=== PATIENT | male | born 1935 | race Caucasian/White ===

== ENCOUNTER 2018-08-22 18:34 | Inpatient (IN) | payer OTHER, MEDICARE ==
[~2018-08-22] VITALS: Ht 177.8 cm; Wt 76.8 kg
[2018-08-22 18:35] VITALS: BP_SYST 184
[2018-08-22] MEDS ORDERED: NACL 0.9% 1,000 ML IV ONE (19:00)
[2018-08-22 19:16] LABS: BASOPHILS % (AUTO) 0.3 % (0.0-2.0); EOSINOPHILS # (AUTO) 0.3 K/uL (0.0-0.4); EOSINOPHILS % (AUTO) 2.1 % (0.0-4.0); HEMATOCRIT 38.1 % (36-54); HEMOGLOBIN 12.2 g/dL (14.0-18.0); LYMPHOCYTES # (AUTO) 0.8 K/uL (1.0-5.5); LYMPHOCYTES % (AUTO) 6.4 % (20.5-51.5); MEAN CORPUSCULAR HEMOGLOBIN 29 pg (27-31); MEAN CORPUSCULAR HGB CONC 32 % (32-36); MEAN CORPUSCULAR VOLUME 90 fL (79.0-98.0); MONOCYTES # (AUTO) 0.7 K/uL (0.0-1.0); MONOCYTES % (AUTO) 5.4 % (1.7-9.3); NEUTROPHILS # (AUTO) 10.9 K/uL (1.8-7.7); NEUTROPHILS % (AUTO) 85.8 % (40.0-70.0); PLATELET COUNT (AUTO) 277 K/uL (130-430); RED BLOOD CELL COUNT(AUTO) 4.24 MIL/uL (4.2-6.2); RED CELL DISTRIBUTION WIDTH 11.8 % (9.0-15.0); WHITE BLOOD COUNT (AUTO) 12.7 K/uL (4.8-10.8)
[2018-08-22 19:25] LABS: ANION GAP 12 (5-15); CALCIUM 9.4 mg/dL (8.4-11.0); CHLORIDE 104 mmol/L (98-107); CREATININE 1.48 mg/dL (0.55-1.30); GLUCOSE 138 mg/dL (70-99); POTASSIUM 3.8 mmol/L (3.5-5.1); PROTHROMBIN TIME 10.6 SECS (9.5-12.5); SODIUM SERUM 141 mmol/L (136-145); UREA NITROGEN, BLOOD 19 mg/dL (8-21)
[2018-08-22 19:31] LABS: ALANINE AMINOTRANSFERASE 18 U/L (12-78); ALBUMIN 3.9 g/dL (3.4-4.8); ASPARTATE AMINOTRANSFERASE 33 U/L (10-37); TOTAL BILIRUBIN 0.6 mg/dL (0.0-1.0)
[2018-08-22 19:34] LABS: ALCOHOL, BLOOD < 3 mg/dL (<10)
[2018-08-22 19:45] LABS: BILIRUBIN,URINE NEGATIVE (NEGATIVE); BLOOD, URINE 3+ (NEGATIVE); CLARITY/URINE CLEAR (CLEAR); COLOR,URINE YELLOW (YELLOW); GLUCOSE,URINE NEGATIVE (NEGATIVE); KETONES,URINE NEGATIVE (NEGATIVE); LEUKOCYTE ESTERASE ,URINE NEGATIVE (NEGATIVE); NITRITE, URINE NEGATIVE (NEGATIVE); PROTEIN URINE 2+ (NEGATIVE); UROBILINOGEN,URINE 0.2 (0.2-1.0)
[2018-08-22 19:54] LABS: BARBITURATE, URINE NEGATIVE (NEG <=200); BENZODIAZEPINE, URINE NEGATIVE (NEG <=150); CANNABINOID, URINE NEGATIVE (NEG <=50); COCAINE, URINE NEGATIVE (NEG <=150); METHAMPHETAMINES SCREEN,URINE NEGATIVE (NEG <=500); OPIATE, URINE NEGATIVE (NEG <=100); PHENCYCLIDINE SCREEN,URINE NEGATIVE (NEG <=25); UR TRICYCLIC ANTIDEPRESSANTS NEGATIVE (NEG <=300); URINE AMPHETAMINE NEGATIVE (NEG <=500); URINE METHADONE NEGATIVE (NEG <=200); URINE OXYCODONE SCREEN NEGATIVE (NEG <=100); URINE PROPOXYPHENE SCREEN NEGATIVE (NEG <=300)
[2018-08-22 19:55] LABS: CREATINE KINASE MB 70.2 ng/mL (0-3.6)
[2018-08-22 19:59] LABS: RBC,URINE 0-3 /HPF (0-3); WBC,URINE 0-3 /HPF (0-3)
[2018-08-22 20:00] LABS: BACTERIA,URINE FEW /HPF (None Seen); MUCUS,URINE None Seen /LPF (None Seen)
[2018-08-22] MEDS ORDERED: LIP40 PO (20:47)
[2018-08-22] MEDS ORDERED: LISI1TAB13 PO (20:47)
[2018-08-22] MEDS ORDERED: METF1000 PO (20:47)
[2018-08-22] MEDS ORDERED: GLIP10TA PO (20:47)
[2018-08-22] MEDS ORDERED: NOR10 PO (20:47)
[2018-08-22 21:25] VITALS: BP_SYST 150
[2018-08-22] MEDS ORDERED: NACL 0.9% 1,000 ML IV SCH (23:38)
[2018-08-22] MEDS ORDERED: MILK OF MAGNESIA 30 ML UDC PO PRN (23:45)
[2018-08-22] MEDS ORDERED: DEXTROSE 50% JECT 50 ML DISP.SYRIN IVP PRN (23:45)
[2018-08-22] MEDS ORDERED: MUPIROCIN 2% TOPICAL OINTMENT 22 GM TP PRN (23:45)
[2018-08-22] MEDS ORDERED: ONDANSETRON HCL 4 MG/2 ML VIAL IVP PRN (23:45)
[2018-08-22] MEDS ORDERED: HYDROcodone/ACETAMIN 5-325 MG TAB (NORCO/ VICODIN) PO PRN (23:45)
[2018-08-22] MEDS ORDERED: hydrALAZINE HCL 20 MG/ML VIAL IVP PRN (23:45)
[2018-08-22] MEDS ORDERED: ZOLPIDEM TARTRATE 5 MG TABLET PO PRN (23:45)
[2018-08-22] MEDS ORDERED: DOCUSATE SODIUM 100 MG CAPSULE PO PRN (23:45)
[2018-08-22] MEDS ORDERED: ACETAMINOPHEN 325 MG TABLET PO PRN (23:45)
[2018-08-23] MEDS ORDERED: HEPARIN SODIUM,PORCINE 5000 UNITS/ML VIAL SUBCUT SCH (00:15)
[2018-08-23 01:11] VITALS: BP_SYST 161
[2018-08-23 01:30] VITALS: BP_SYST 153
[2018-08-23 03:25] LABS: BASOPHILS % (AUTO) 0.3 % (0.0-2.0); EOSINOPHILS # (AUTO) 0.1 K/uL (0.0-0.4); EOSINOPHILS % (AUTO) 0.6 % (0.0-4.0); HEMATOCRIT 34.8 % (36-54); HEMOGLOBIN 11.4 g/dL (14.0-18.0); LYMPHOCYTES # (AUTO) 0.8 K/uL (1.0-5.5); LYMPHOCYTES % (AUTO) 7.8 % (20.5-51.5); MEAN CORPUSCULAR HEMOGLOBIN 30 pg (27-31); MEAN CORPUSCULAR HGB CONC 33 % (32-36); MEAN CORPUSCULAR VOLUME 90 fL (79.0-98.0); MONOCYTES # (AUTO) 0.5 K/uL (0.0-1.0); MONOCYTES % (AUTO) 4.8 % (1.7-9.3); NEUTROPHILS # (AUTO) 9.2 K/uL (1.8-7.7); NEUTROPHILS % (AUTO) 86.5 % (40.0-70.0); PLATELET COUNT (AUTO) 275 K/uL (130-430); RED BLOOD CELL COUNT(AUTO) 3.86 MIL/uL (4.2-6.2); RED CELL DISTRIBUTION WIDTH 11.7 % (9.0-15.0); WHITE BLOOD COUNT (AUTO) 10.6 K/uL (4.8-10.8)
[2018-08-23 03:39] LABS: PHOSPHORUS 3.9 mg/dL (2.7-4.5); THYROID STIMULATING HORMONE 0.75 uIu/mL (0.36-3.74)
[2018-08-23 08:24] VITALS: BP_SYST 167
[2018-08-23] MEDS: glipiZIDE XL 5 MG TAB ( GLUCOTROL XL) PO SCH ×2 (09:07→21:05)
[2018-08-23] MEDS: metFORMIN HCL 500 MG TABLET PO SCH ×2 (09:07→17:58)
[2018-08-23] MEDS: amLODIPine BESYLATE 10 MG TABLET PO SCH (09:08)
[2018-08-23] MEDS: METOPROLOL TARTRATE 25 MG TABLET PO SCH ×2 (09:09→21:07)
[2018-08-23] MEDS: ATORVASTATIN 20 MG TABLET PO SCH (09:10)
[2018-08-23] MEDS: HEPARIN SODIUM,PORCINE 5000 UNITS/ML VIAL SUBCUT SCH ×2 (09:15→21:02)
[2018-08-23 13:10] LABS: ANION GAP 11 (5-15); CALCIUM 8.8 mg/dL (8.4-11.0); CHLORIDE 103 mmol/L (98-107); CREATININE 1.34 mg/dL (0.55-1.30); GLUCOSE 220 mg/dL (70-99); POTASSIUM 3.7 mmol/L (3.5-5.1); SODIUM SERUM 139 mmol/L (136-145); UREA NITROGEN, BLOOD 18 mg/dL (8-21)
[2018-08-23] MEDS ORDERED: MAGNESIUM OXIDE 400 MG TABLET PO ONE (14:00)
[2018-08-23] MEDS ORDERED: LISINOPRIL 20 MG TABLET PO ONE (16:00)
[2018-08-23] MEDS: MAGNESIUM OXIDE 400 MG TABLET PO SCH ×2 (17:48→21:07)
[2018-08-23] MEDS: NACL 0.9% 1,000 ML IV SCH ×2 (17:53→18:05)
[2018-08-23 18:47] VITALS: BP_SYST 150
[2018-08-24 01:22] VITALS: BP_SYST 147
[2018-08-24] MEDS: INSULIN ASPART 100 UNITS/ML, 10 ML VIAL (NovoLOG) SUBCUT PRN ×2 (07:04→12:10)
[2018-08-24 08:00] VITALS: BP_SYST 151
[2018-08-24] MEDS: metFORMIN HCL 500 MG TABLET PO SCH (08:54)
[2018-08-24] MEDS: ATORVASTATIN 20 MG TABLET PO SCH (08:55)
[2018-08-24] MEDS: glipiZIDE XL 5 MG TAB ( GLUCOTROL XL) PO SCH (08:55)
[2018-08-24] MEDS: METOPROLOL TARTRATE 25 MG TABLET PO SCH (08:56)
[2018-08-24] MEDS: amLODIPine BESYLATE 10 MG TABLET PO SCH (08:57)
[2018-08-24] MEDS: HEPARIN SODIUM,PORCINE 5000 UNITS/ML VIAL SUBCUT SCH (08:58)
[2018-08-24] MEDS ORDERED: LISINOPRIL 20 MG TABLET PO SCH (09:00)
[2018-08-24 11:07] LABS: BASOPHILS % (AUTO) 0.3 % (0.0-2.0); EOSINOPHILS # (AUTO) 0.1 K/uL (0.0-0.4); EOSINOPHILS % (AUTO) 0.6 % (0.0-4.0); HEMATOCRIT 31.7 % (36-54); HEMOGLOBIN 10.8 g/dL (14.0-18.0); LYMPHOCYTES # (AUTO) 0.9 K/uL (1.0-5.5); LYMPHOCYTES % (AUTO) 8.8 % (20.5-51.5); MEAN CORPUSCULAR HEMOGLOBIN 31 pg (27-31); MEAN CORPUSCULAR HGB CONC 34 % (32-36); MEAN CORPUSCULAR VOLUME 92 fL (79.0-98.0); MONOCYTES # (AUTO) 0.6 K/uL (0.0-1.0); MONOCYTES % (AUTO) 6.5 % (1.7-9.3); NEUTROPHILS # (AUTO) 8.3 K/uL (1.8-7.7); NEUTROPHILS % (AUTO) 83.8 % (40.0-70.0); PLATELET COUNT (AUTO) 213 K/uL (130-430); RED BLOOD CELL COUNT(AUTO) 3.46 MIL/uL (4.2-6.2); RED CELL DISTRIBUTION WIDTH 11.7 % (9.0-15.0); WHITE BLOOD COUNT (AUTO) 9.9 K/uL (4.8-10.8)
[2018-08-24 11:22] LABS: ANION GAP 9 (5-15); CALCIUM 8.5 mg/dL (8.4-11.0); CHLORIDE 103 mmol/L (98-107); CREATININE 1.36 mg/dL (0.55-1.30); GLUCOSE 219 mg/dL (70-99); PHOSPHORUS 3.3 mg/dL (2.7-4.5); POTASSIUM 3.6 mmol/L (3.5-5.1); SODIUM SERUM 137 mmol/L (136-145); UREA NITROGEN, BLOOD 22 mg/dL (8-21)
[2018-08-24 12:02] VITALS: BP_SYST 141
[2018-08-24 15:37] VITALS: BP_SYST 142
[2018-08-24 16:02] VITALS: BP_SYST 142; BP_SYST 145
== END 2018-08-24 16:25 | disposition home or self-care (01) | DRG 280 ==
LOC: SED 18:34 → STU 20:48
PROVIDERS: ADMIT Family Medicine; ATTEND Family Medicine
DX: I21.A1 Myocardial infarction type 2 (principal); N17.0 Acute kidney failure with tubular necrosis; G90.8 Other disorders of autonomic nervous system; M94.0 Chondrocostal junction syndrome [Tietze]; E78.5 Hyperlipidemia, unspecified; I12.9 Hypertensive chronic kidney disease with stage 1 through stage 4 chronic kidney disease, or unspecified chronic kidney disease; E11.22 Type 2 diabetes mellitus with diabetic chronic kidney disease; N18.3 Chronic kidney disease, stage 3 (moderate); I16.0 Hypertensive urgency; E83.42 Hypomagnesemia; S09.90XA Unspecified injury of head, initial encounter; W18.30XA Fall on same level, unspecified, initial encounter; Y93.89 Activity, other specified; Y92.89 Other specified places as the place of occurrence of the external cause; Y99.8 Other external cause status; Z79.899 Other long term (current) drug therapy
CPT/HCPCS: 36415; 70450-TC; 71045; 72125-TC; 76770; 78579; 78580-TC; 80048; 80053; 80061; 80307; 81000-TC; 82550-TC; 82553-TC; 82962; 83036; 83690-TC; 83735-TC; 84100-TC; 84443-TC; 84484; 85025; 85379; 85610-TC; 93005; 93306; 93880; 93970; 96360; 99285; A9539; A9540; G0378; G0482; J1644; J1815; J7030

== ENCOUNTER 2020-09-06 03:22 | Inpatient (IN) | payer OTHER, MEDICARE, SELFPAY ==
[~2020-09-06] VITALS: Ht 175.3 cm; Wt 81.2 kg
[2020-09-06] VITALS (7 sets, daily range): BP systolic 107–162
[~2020-09-06 03:22] MED LIST: GLIP10TA PO; LIP40 PO; LISI1TAB29 PO; METF1000 PO; NOR10 PO
[2020-09-06] MEDS ORDERED: IPRATROPIUM BROM 0.5 MG/2.5 ML VIAL.NEB (ATROVENT) INH ONE (03:45)
[2020-09-06] MEDS ORDERED: LevALBUTEROL HCL 1.25 MG/0.5 ML *CONC.* VIAL.NEB (XOPENEX CONC.) INH ONE (03:45)
[2020-09-06] MEDS ORDERED: ASPIRIN 81 MG TAB.CHEW PO ONE (03:45)
[2020-09-06] MEDS ORDERED: ASPIRIN 81 MG TAB.CHEW ONE (03:47)
[2020-09-06] MEDS ORDERED: AZITHROMYCIN 500 MG in NS 250 ML IV ONE ×2 (04:15→05:45)
[2020-09-06 04:43] LABS: ANION GAP 12 (5-15); CALCIUM 8.8 mg/dL (8.4-11.0); CHLORIDE 105 mmol/L (98-107); CREATININE 1.74 mg/dL (0.55-1.30); GLUCOSE 210 mg/dL (70-99); SODIUM SERUM 141 mmol/L (136-145); UREA NITROGEN, BLOOD 33 mg/dL (8-21)
[2020-09-06 04:49] LABS: BASOPHILS # (AUTO) 0.1 K/uL (0.0-0.2); BASOPHILS % (AUTO) 0.8 % (0.0-2.0); EOSINOPHILS # (AUTO) 0.2 K/uL (0.0-0.4); EOSINOPHILS % (AUTO) 1.3 % (0.0-4.0); HEMATOCRIT 33.3 % (36-54); HEMOGLOBIN 11.3 g/dL (14.0-18.0); LYMPHOCYTES # (AUTO) 0.9 K/uL (1.0-5.5); LYMPHOCYTES % (AUTO) 5.8 % (20.5-51.5); MEAN CORPUSCULAR HEMOGLOBIN 30 pg (27-31); MEAN CORPUSCULAR HGB CONC 34 % (32-36); MEAN CORPUSCULAR VOLUME 90 fL (79.0-98.0); MONOCYTES # (AUTO) 0.7 K/uL (0.0-1.0); MONOCYTES % (AUTO) 4.2 % (1.7-9.3); NEUTROPHILS # (AUTO) 14.1 K/uL (1.8-7.7); NEUTROPHILS % (AUTO) 87.9 % (40.0-70.0); PLATELET COUNT (AUTO) 280 K/uL (130-430); PROTHROMBIN TIME 10.7 SECS (9.5-12.5); RED CELL DISTRIBUTION WIDTH 12.9 % (9.0-15.0)
[2020-09-06 04:54] LABS: ALANINE AMINOTRANSFERASE 19 U/L (12-78); ALBUMIN 3.5 g/dL (3.4-4.8); ASPARTATE AMINOTRANSFERASE 15 U/L (10-37); TOTAL BILIRUBIN 0.4 mg/dL (0.0-1.0)
[2020-09-06] MEDS ORDERED: ALBUTEROL SULFATE 0.083% 2.5 MG/3 ML VIAL.NEB INH PRN (05:45)
[2020-09-06] MEDS ORDERED: DEXTROSE 50% JECT 50 ML DISP.SYRIN IVP PRN (07:00)
[2020-09-06] MEDS: DEXAMETHASONE SOD PHOSPHATE 4 MG/ML VIAL IVP SCH (10:14)
[2020-09-06] MEDS: HEPARIN SODIUM,PORCINE 5,000 UNITS/ML VIAL SUBCUT SCH ×2 (10:15→20:43)
[2020-09-06] MEDS: ATORVASTATIN 20 MG TABLET PO SCH (10:25)
[2020-09-06] MEDS: glipiZIDE XL 5 MG TAB ( GLUCOTROL XL) PO SCH ×2 (10:25→20:41)
[2020-09-06] MEDS: amLODIPine BESYLATE 10 MG TABLET PO SCH (10:25)
[2020-09-06] MEDS: INSULIN REGULAR, HUMAN 100 UNITS/ML, 10 ML VIAL (humuLIN R) SUBCUT PRN ×2 (10:56→16:34)
[2020-09-06] MEDS: cefTRIAXone 1 GM IVPB PREMIX 50 ML IV SCH (12:25)
[2020-09-07] MEDS: INSULIN REGULAR, HUMAN 100 UNITS/ML, 10 ML VIAL (humuLIN R) SUBCUT PRN ×3 (00:34→18:08)
[2020-09-07 08:00] VITALS: BP_SYST 149
[2020-09-07] MEDS: AZITHROMYCIN 500 MG in NS 250 ML IV SCH (09:00)
[2020-09-07] MEDS: HEPARIN SODIUM,PORCINE 5,000 UNITS/ML VIAL SUBCUT SCH ×2 (09:10→20:27)
[2020-09-07] MEDS: ATORVASTATIN 20 MG TABLET PO SCH (09:13)
[2020-09-07] MEDS: cefTRIAXone 1 GM IVPB PREMIX 50 ML IV SCH (09:13)
[2020-09-07] MEDS: glipiZIDE XL 5 MG TAB ( GLUCOTROL XL) PO SCH ×2 (09:13→20:26)
[2020-09-07] MEDS: DEXAMETHASONE SOD PHOSPHATE 4 MG/ML VIAL IVP SCH (09:13)
[2020-09-07] MEDS: amLODIPine BESYLATE 10 MG TABLET PO SCH (09:28)
[2020-09-07 12:00] VITALS: BP_SYST 152
[2020-09-07 16:00] VITALS: BP_SYST 158
[2020-09-07 20:00] VITALS: BP_SYST 154
[2020-09-08] MEDS: INSULIN REGULAR, HUMAN 100 UNITS/ML, 10 ML VIAL (humuLIN R) SUBCUT PRN ×3 (00:53→16:09)
[2020-09-08 08:04] LABS: BASOPHILS % (AUTO) 0.2 % (0.0-2.0); EOSINOPHILS % (AUTO) 0.1 % (0.0-4.0); HEMATOCRIT 29.2 % (36-54); HEMOGLOBIN 10.2 g/dL (14.0-18.0); LYMPHOCYTES % (AUTO) 9.2 % (20.5-51.5); MEAN CORPUSCULAR HEMOGLOBIN 31 pg (27-31); MEAN CORPUSCULAR HGB CONC 35 % (32-36); MEAN CORPUSCULAR VOLUME 89 fL (79.0-98.0); MONOCYTES # (AUTO) 0.6 K/uL (0.0-1.0); NEUTROPHILS # (AUTO) 8.9 K/uL (1.8-7.7); NEUTROPHILS % (AUTO) 84.5 % (40.0-70.0); PLATELET COUNT (AUTO) 241 K/uL (130-430); RED BLOOD CELL COUNT(AUTO) 3.28 MIL/uL (4.2-6.2); WHITE BLOOD COUNT (AUTO) 10.6 K/uL (4.8-10.8)
[2020-09-08 08:19] LABS: ALANINE AMINOTRANSFERASE 17 U/L (12-78); ALBUMIN 2.9 g/dL (3.4-4.8); ANION GAP 10 (5-15); ASPARTATE AMINOTRANSFERASE 19 U/L (10-37); CALCIUM 8.6 mg/dL (8.4-11.0); CHLORIDE 107 mmol/L (98-107); GLUCOSE 135 mg/dL (70-99); POTASSIUM 3.9 mmol/L (3.5-5.1); SODIUM SERUM 142 mmol/L (136-145); TOTAL BILIRUBIN 0.4 mg/dL (0.0-1.0); UREA NITROGEN, BLOOD 39 mg/dL (8-21)
[2020-09-08] MEDS: AZITHROMYCIN 500 MG in NS 250 ML IV SCH (09:37)
[2020-09-08] MEDS: ATORVASTATIN 20 MG TABLET PO SCH (09:38)
[2020-09-08] MEDS: amLODIPine BESYLATE 10 MG TABLET PO SCH (09:38)
[2020-09-08] MEDS: glipiZIDE XL 5 MG TAB ( GLUCOTROL XL) PO SCH ×2 (09:38→21:36)
[2020-09-08] MEDS: DEXAMETHASONE SOD PHOSPHATE 4 MG/ML VIAL IVP SCH (09:38)
[2020-09-08] MEDS: HEPARIN SODIUM,PORCINE 5,000 UNITS/ML VIAL SUBCUT SCH ×2 (09:39→21:38)
[2020-09-08] MEDS: cefTRIAXone 1 GM IVPB PREMIX 50 ML IV SCH (11:32)
[2020-09-08 20:00] VITALS: BP_SYST 132
[2020-09-09 08:19] VITALS: BP_SYST 188
[2020-09-09] MEDS: glipiZIDE XL 5 MG TAB ( GLUCOTROL XL) PO SCH ×2 (08:56→22:41)
[2020-09-09] MEDS: amLODIPine BESYLATE 10 MG TABLET PO SCH (08:57)
[2020-09-09] MEDS: ATORVASTATIN 20 MG TABLET PO SCH (08:58)
[2020-09-09] MEDS: HEPARIN SODIUM,PORCINE 5,000 UNITS/ML VIAL SUBCUT SCH ×2 (09:00→22:41)
[2020-09-09] MEDS: DEXAMETHASONE SOD PHOSPHATE 4 MG/ML VIAL IVP SCH (09:01)
[2020-09-09] MEDS: cefTRIAXone 1 GM IVPB PREMIX 50 ML IV SCH (09:35)
[2020-09-09] MEDS: AZITHROMYCIN 500 MG in NS 250 ML IV SCH (09:36)
[2020-09-09 10:14] VITALS: BP_SYST 188
[2020-09-09] MEDS: INSULIN REGULAR, HUMAN 100 UNITS/ML, 10 ML VIAL (humuLIN R) SUBCUT PRN ×2 (12:04→18:01)
[2020-09-09 12:54] VITALS: BP_SYST 178
[2020-09-09 16:00] VITALS: BP_SYST 163
[2020-09-09 20:00] VITALS: BP_SYST 154
[2020-09-10] VITALS: BP_SYST 139; BP_SYST 167
[2020-09-10] MEDS: INSULIN REGULAR, HUMAN 100 UNITS/ML, 10 ML VIAL (humuLIN R) SUBCUT PRN ×3 (01:17→18:39)
[2020-09-10 09:00] VITALS: BP_SYST 147
[2020-09-10] MEDS ORDERED: FUROSEMIDE 20 MG/2 ML VIAL IVP ONE (09:00)
[2020-09-10] MEDS: glipiZIDE XL 5 MG TAB ( GLUCOTROL XL) PO SCH ×2 (10:42→22:25)
[2020-09-10] MEDS: ATORVASTATIN 20 MG TABLET PO SCH (10:43)
[2020-09-10] MEDS: DEXAMETHASONE SOD PHOSPHATE 4 MG/ML VIAL IVP SCH (10:43)
[2020-09-10] MEDS: amLODIPine BESYLATE 10 MG TABLET PO SCH (10:43)
[2020-09-10] MEDS ORDERED: FUROSEMIDE 20 MG/2 ML VIAL ONE (10:52)
[2020-09-10] MEDS: cefTRIAXone 1 GM IVPB PREMIX 50 ML IV SCH (10:54)
[2020-09-10] MEDS: HEPARIN SODIUM,PORCINE 5,000 UNITS/ML VIAL SUBCUT SCH ×2 (11:11→22:26)
[2020-09-10 12:00] VITALS: BP_SYST 151
[2020-09-10] MEDS: AZITHROMYCIN 500 MG in NS 250 ML IV SCH (12:13)
[2020-09-10 16:00] VITALS: BP_SYST 160
[2020-09-10 20:00] VITALS: BP_SYST 158
[2020-09-11] MEDS: INSULIN REGULAR, HUMAN 100 UNITS/ML, 10 ML VIAL (humuLIN R) SUBCUT PRN ×2 (00:30→11:52)
[2020-09-11 07:20] LABS: BASOPHILS % (AUTO) 0.2 % (0.0-2.0); EOSINOPHILS % (AUTO) 0.4 % (0.0-4.0); HEMATOCRIT 29.1 % (36-54); HEMOGLOBIN 10.3 g/dL (14.0-18.0); LYMPHOCYTES # (AUTO) 1.1 K/uL (1.0-5.5); LYMPHOCYTES % (AUTO) 14.2 % (20.5-51.5); MEAN CORPUSCULAR HEMOGLOBIN 31 pg (27-31); MEAN CORPUSCULAR HGB CONC 35 % (32-36); MEAN CORPUSCULAR VOLUME 88 fL (79.0-98.0); MONOCYTES # (AUTO) 0.6 K/uL (0.0-1.0); MONOCYTES % (AUTO) 7.9 % (1.7-9.3); NEUTROPHILS # (AUTO) 5.9 K/uL (1.8-7.7); NEUTROPHILS % (AUTO) 77.3 % (40.0-70.0); PLATELET COUNT (AUTO) 251 K/uL (130-430); RED BLOOD CELL COUNT(AUTO) 3.32 MIL/uL (4.2-6.2); RED CELL DISTRIBUTION WIDTH 12.8 % (9.0-15.0); WHITE BLOOD COUNT (AUTO) 7.6 K/uL (4.8-10.8)
[2020-09-11 07:59] LABS: ALANINE AMINOTRANSFERASE 35 U/L (12-78); ALBUMIN 2.7 g/dL (3.4-4.8); ANION GAP 10 (5-15); ASPARTATE AMINOTRANSFERASE 19 U/L (10-37); CALCIUM 8.4 mg/dL (8.4-11.0); CHLORIDE 107 mmol/L (98-107); CREATININE 0.93 mg/dL (0.55-1.30); GLUCOSE 392 mg/dL (70-99); POTASSIUM 3.7 mmol/L (3.5-5.1); SODIUM SERUM 141 mmol/L (136-145); TOTAL BILIRUBIN 0.9 mg/dL (0.0-1.0); UREA NITROGEN, BLOOD 38 mg/dL (8-21)
[2020-09-11 08:00] VITALS: BP_SYST 150
[2020-09-11] MEDS: cefTRIAXone 1 GM IVPB PREMIX 50 ML IV SCH (08:55)
[2020-09-11] MEDS: ATORVASTATIN 20 MG TABLET PO SCH (09:00)
[2020-09-11] MEDS: glipiZIDE XL 5 MG TAB ( GLUCOTROL XL) PO SCH (09:00)
[2020-09-11] MEDS: DEXAMETHASONE SOD PHOSPHATE 4 MG/ML VIAL IVP SCH (09:01)
[2020-09-11] MEDS: amLODIPine BESYLATE 10 MG TABLET PO SCH (09:01)
[2020-09-11] MEDS: HEPARIN SODIUM,PORCINE 5,000 UNITS/ML VIAL SUBCUT SCH (09:21)
[2020-09-11] MEDS ORDERED: AMOX-426 PO (10:23)
[2020-09-11] MEDS ORDERED: FUROSEMIDE 20 MG/2 ML VIAL IVP ONE (10:30)
[2020-09-11 12:00] VITALS: BP_SYST 158
[2020-09-11 13:28] VITALS: BP_SYST 158
[2020-09-11] MEDS ORDERED: FUROSEMIDE 20 MG/2 ML VIAL IVP SCH (17:00)
== END 2020-09-11 15:11 | disposition home or self-care (01) | DRG 291 ==
LOC: SED 03:22 → STU 05:35
PROVIDERS: ADMIT Internal Medicine Hospice and Palliative Medicine; ATTEND Internal Medicine Hospice and Palliative Medicine
DX: I13.0 Hypertensive heart and chronic kidney disease with heart failure and stage 1 through stage 4 chronic kidney disease, or unspecified chronic kidney disease (principal); J96.01 Acute respiratory failure with hypoxia; I50.31 Acute diastolic (congestive) heart failure; J18.9 Pneumonia, unspecified organism; N17.9 Acute kidney failure, unspecified; I31.3 Pericardial effusion (noninflammatory); J44.0 Chronic obstructive pulmonary disease with (acute) lower respiratory infection; D64.9 Anemia, unspecified; E11.22 Type 2 diabetes mellitus with diabetic chronic kidney disease; F17.290 Nicotine dependence, other tobacco product, uncomplicated; N18.9 Chronic kidney disease, unspecified; Z20.822 Contact with and (suspected) exposure to COVID-19
CPT/HCPCS: 36415; 36600; 71045; 80053; 82803-TC; 82962; 83880; 84484; 85025; 85379; 85610-TC; 85730-TC; 87040-TC; 93005; 93306; 94640; 96365; 96366; 99285; G0378; J0456; J0696; J1100; J1644; J1815; J1940; J7050; J7612; U0003

== ENCOUNTER 2022-10-08 07:08 | Inpatient (IN) | payer OTHER, MEDICARE ==
[~2022-10-08] VITALS: Ht 177.8 cm; Wt 69.0 kg
[~2022-10-08 07:08] MED LIST changes: +AMOX-426 PO; -LISI1TAB29 PO; +LISI1TAB57 PO
[2022-10-08 07:15] VITALS: BP_SYST 189
[2022-10-08 07:35] LABS: BASOPHILS # (AUTO) 0.1 K/uL (0.0-0.2); BASOPHILS % (AUTO) 0.6 % (0.0-2.0); EOSINOPHILS # (AUTO) 0.4 K/uL (0.0-0.4); EOSINOPHILS % (AUTO) 2.4 % (0.0-4.0); HEMATOCRIT 31.3 % (36-54); HEMOGLOBIN 10.7 g/dL (14.0-18.0); LYMPHOCYTES % (AUTO) 12.3 % (20.5-51.5); MEAN CORPUSCULAR HEMOGLOBIN 30 pg (27-31); MEAN CORPUSCULAR HGB CONC 34 % (32-36); MEAN CORPUSCULAR VOLUME 88 fL (79.0-98.0); MONOCYTES # (AUTO) 1.1 K/uL (0.0-1.0); MONOCYTES % (AUTO) 6.8 % (1.7-9.3); NEUTROPHILS # (AUTO) 12.8 K/uL (1.8-7.7); NEUTROPHILS % (AUTO) 77.9 % (40.0-70.0); PLATELET COUNT (AUTO) 289 K/uL (130-430); RED BLOOD CELL COUNT(AUTO) 3.58 MIL/uL (4.2-6.2); RED CELL DISTRIBUTION WIDTH 14.4 % (9.0-15.0); WHITE BLOOD COUNT (AUTO) 16.5 K/uL (4.8-10.8)
[2022-10-08 07:41] LABS: ANION GAP 14 (5-15); CALCIUM 9.5 mg/dL (8.4-11.0); CHLORIDE 108 mmol/L (98-107); CREATININE 1.87 mg/dL (0.55-1.30); GLUCOSE 203 mg/dL (70-99); UREA NITROGEN, BLOOD 35 mg/dL (8-21)
[2022-10-08 07:44] LABS: PROTHROMBIN TIME 10.7 SECS (9.5-12.5)
[2022-10-08 07:55] LABS: ALANINE AMINOTRANSFERASE 17 U/L (12-78); ALBUMIN 3.5 g/dL (3.4-4.8); ASPARTATE AMINOTRANSFERASE 12 U/L (10-37); TOTAL BILIRUBIN 0.6 mg/dL (0.0-1.0)
[2022-10-08] MEDS ORDERED: AZITHROMYCIN 500 MG in NS 250 ML IV SCH (08:00)
[2022-10-08] MEDS ORDERED: ALBUTEROL SULFATE 0.083% 2.5 MG/3 ML VIAL.NEB INH ONE (08:00)
[2022-10-08] MEDS ORDERED: IPRATROPIUM BROM 0.5 MG/2.5 ML VIAL.NEB (ATROVENT) INH ONE (08:00)
[2022-10-08] MEDS ORDERED: AZITHROMYCIN 500 MG/VIAL (ZITHROMAX) IV ONE (08:10)
[2022-10-08] MEDS ORDERED: cefTRIAXone 2 GM VIAL ONE (08:10)
[2022-10-08] MEDS ORDERED: NACL 0.9% 1,000 ML IV ONE (08:15)
[2022-10-08] MEDS ORDERED: HYDR25TA4 PO (08:18)
[2022-10-08] MEDS ORDERED: LINA5TAB2 PO (08:18)
[2022-10-08] MEDS ORDERED: AMLO10TA88 PO (08:18)
[2022-10-08] MEDS ORDERED: ATOR-1 PO (08:18)
[2022-10-08] MEDS ORDERED: LISI40TA13 PO (08:18)
[2022-10-08] MEDS ORDERED: DEXTROSE 50% JECT 50 ML DISP.SYRIN IVP PRN (08:30)
[2022-10-08] MEDS ORDERED: ACETAMINOPHEN 325 MG TABLET PO PRN (08:30)
[2022-10-08] MEDS ORDERED: MAGNESIUM SULFATE 50 ML IV PRN (08:30)
[2022-10-08] MEDS ORDERED: MORPHINE 2 MG/ML INJ. SYRINGE IVP PRN ×2 (08:30)
[2022-10-08] MEDS ORDERED: MUPIROCIN 2% TOPICAL OINTMENT 22 GM NS PRN (08:30)
[2022-10-08] MEDS: NACL 0.9% 1,000 ML IV SCH ×2 (08:30→23:54)
[2022-10-08] MEDS ORDERED: LORazepam 2 MG/ML VIAL IVP PRN (08:30)
[2022-10-08] MEDS ORDERED: POTASSIUM CHLORIDE 20 MEQ TAB.PRT.SR PO PRN (08:30)
[2022-10-08] MEDS ORDERED: DOCUSATE SODIUM 100 MG CAPSULE PO PRN (08:30)
[2022-10-08] MEDS ORDERED: PIPERACILLIN/TAZO 3.375 GM in NS 50 ML IV SCH (08:30)
[2022-10-08] MEDS ORDERED: ZOLPIDEM TARTRATE 5 MG TABLET PO PRN (08:30)
[2022-10-08] MEDS ORDERED: ONDANSETRON HCL 4 MG/2 ML VIAL IVP PRN (08:30)
[2022-10-08] MEDS: ATORVASTATIN 20 MG TABLET PO SCH (09:33)
[2022-10-08] MEDS: amLODIPine BESYLATE 10 MG TABLET PO SCH (09:34)
[2022-10-08 09:47] VITALS: BP_SYST 159
[2022-10-08] MEDS ORDERED: FAMOTIDINE PF 20 MG/2 ML VIAL ONE (10:08)
[2022-10-08] MEDS: INSULIN LISPRO SLIDING SCALE 100 UNITS/ML, 3 ML VIAL (humaLOG) SUBCUT PRN ×3 (10:15→21:00)
[2022-10-08] MEDS: HEPARIN SODIUM,PORCINE 5,000 UNITS/ML VIAL SUBCUT SCH ×2 (14:34→21:06)
[2022-10-08] MEDS: METOPROLOL TARTRATE 25 MG TABLET PO SCH ×2 (14:36→20:52)
[2022-10-08] MEDS: IPRATROPIUM BROM 0.5 MG/2.5 ML VIAL.NEB (ATROVENT) INH PRN ×2 (14:39→22:15)
[2022-10-08] MEDS: ALBUTEROL SULFATE 0.083% 2.5 MG/3 ML VIAL.NEB INH PRN ×2 (14:39→22:15)
[2022-10-08] MEDS ORDERED: lisinopriL 20 MG TABLET PO ONE (16:30)
[2022-10-08 17:13] VITALS: BP_SYST 140
[2022-10-08 20:00] VITALS: BP_SYST 133
[2022-10-08] MEDS ORDERED: PIPERACILLIN/TAZOBACTAM 2.25 GM/ D5W 50 ML IV SCH ×2 (22:00)
[2022-10-08] MEDS ORDERED: FUROSEMIDE 40 MG/4 ML VIAL IVP ONE (22:45)
[2022-10-09] VITALS (18 sets, daily range): BP systolic 132–166
[2022-10-09 06:48] LABS: BASOPHILS % (AUTO) 0.3 % (0.0-2.0); EOSINOPHILS % (AUTO) 0.2 % (0.0-4.0); HEMATOCRIT 27.6 % (36-54); HEMOGLOBIN 9.4 g/dL (14.0-18.0); LYMPHOCYTES # (AUTO) 0.8 K/uL (1.0-5.5); LYMPHOCYTES % (AUTO) 8.1 % (20.5-51.5); MEAN CORPUSCULAR HEMOGLOBIN 31 pg (27-31); MEAN CORPUSCULAR HGB CONC 34 % (32-36); MEAN CORPUSCULAR VOLUME 89 fL (79.0-98.0); MONOCYTES # (AUTO) 0.7 K/uL (0.0-1.0); MONOCYTES % (AUTO) 6.8 % (1.7-9.3); NEUTROPHILS # (AUTO) 8.8 K/uL (1.8-7.7); NEUTROPHILS % (AUTO) 84.6 % (40.0-70.0); PLATELET COUNT (AUTO) 225 K/uL (130-430); RED BLOOD CELL COUNT(AUTO) 3.08 MIL/uL (4.2-6.2); RED CELL DISTRIBUTION WIDTH 14.4 % (9.0-15.0); WHITE BLOOD COUNT (AUTO) 10.4 K/uL (4.8-10.8)
[2022-10-09 06:51] LABS: ANION GAP 12 (5-15); CALCIUM 8.8 mg/dL (8.4-11.0); CHLORIDE 110 mmol/L (98-107); CREATININE 2.06 mg/dL (0.55-1.30); GLUCOSE 120 mg/dL (70-99); UREA NITROGEN, BLOOD 46 mg/dL (8-21)
[2022-10-09] MEDS: ATORVASTATIN 20 MG TABLET PO SCH ×2 (09:00→10:37)
[2022-10-09] MEDS: amLODIPine BESYLATE 10 MG TABLET PO SCH (09:00)
[2022-10-09] MEDS ORDERED: FUROSEMIDE 20 MG/2 ML VIAL IVP ONE (09:45)
[2022-10-09] MEDS ORDERED: FUROSEMIDE 100 MG in D5W 90 ML IV SCH (10:00)
[2022-10-09] MEDS ORDERED: NITROGLYCERIN 250 ML IV PRN (10:00)
[2022-10-09] MEDS ORDERED: *HEPARIN PER PHARMACY XX PRN (10:15)
[2022-10-09] MEDS: cefTRIAXone 1 GM in D5W 50 ML IV SCH (10:21)
[2022-10-09] MEDS ORDERED: HEPARIN SODIUM,PORCINE 5,000 UNITS/ML VIAL IVP ONE (10:30)
[2022-10-09] MEDS ORDERED: HEPARIN SODIUM,PORCINE 2000 UNITS/0.4 ML BOLUS IVP PRN (10:30)
[2022-10-09] MEDS ORDERED: HEPARIN SODIUM,PORCINE 3000 UNITS/0.6 ML BOLUS IVP PRN (10:30)
[2022-10-09] MEDS: lisinopriL 20 MG TABLET PO SCH (10:38)
[2022-10-09] MEDS: METOPROLOL TARTRATE 25 MG TABLET PO SCH ×2 (10:39→21:15)
[2022-10-09 10:53] LABS: INR 1.1 (0.80-1.20); PROTHROMBIN TIME 11.4 SECS (9.5-12.5)
[2022-10-09] MEDS: HEPARIN 25,000 UNITS in 250 ML PREMIX IV PRN (10:58)
[2022-10-09] MEDS: AZITHROMYCIN 500 MG in NS 250 ML IV SCH (10:59)
[2022-10-09] MEDS ORDERED: ISOSORBIDE MONONITRATE 30 MG TAB.ER.24H PO ONE (11:00)
[2022-10-09] MEDS ORDERED: hydrALAZINE HCL 25 MG TABLET PO ONE (11:00)
[2022-10-09] MEDS: hydrALAZINE HCL 25 MG TABLET PO SCH ×2 (14:00→21:16)
[2022-10-10] VITALS (24 sets, daily range): BP systolic 103–162
[2022-10-10 04:57] LABS: ANION GAP 9 (5-15); BASOPHILS % (AUTO) 0.4 % (0.0-2.0); CALCIUM 8.6 mg/dL (8.4-11.0); CHLORIDE 113 mmol/L (98-107); EOSINOPHILS % (AUTO) 0.5 % (0.0-4.0); GLUCOSE 108 mg/dL (70-99); HEMATOCRIT 24.3 % (36-54); HEMOGLOBIN 8.2 g/dL (14.0-18.0); LYMPHOCYTES # (AUTO) 0.7 K/uL (1.0-5.5); LYMPHOCYTES % (AUTO) 9.6 % (20.5-51.5); MEAN CORPUSCULAR HEMOGLOBIN 30 pg (27-31); MEAN CORPUSCULAR HGB CONC 34 % (32-36); MEAN CORPUSCULAR VOLUME 89 fL (79.0-98.0); MONOCYTES # (AUTO) 0.6 K/uL (0.0-1.0); MONOCYTES % (AUTO) 8.3 % (1.7-9.3); NEUTROPHILS # (AUTO) 5.9 K/uL (1.8-7.7); NEUTROPHILS % (AUTO) 81.2 % (40.0-70.0); PLATELET COUNT (AUTO) 196 K/uL (130-430); RED BLOOD CELL COUNT(AUTO) 2.73 MIL/uL (4.2-6.2); RED CELL DISTRIBUTION WIDTH 14.5 % (9.0-15.0); UREA NITROGEN, BLOOD 44 mg/dL (8-21); WHITE BLOOD COUNT (AUTO) 7.2 K/uL (4.8-10.8)
[2022-10-10] MEDS: hydrALAZINE HCL 25 MG TABLET PO SCH ×3 (05:50→22:32)
[2022-10-10] MEDS: HEPARIN 25,000 UNITS in 250 ML PREMIX IV PRN (07:02)
[2022-10-10] MEDS: cefTRIAXone 1 GM in D5W 50 ML IV SCH (08:39)
[2022-10-10] MEDS: ISOSORBIDE MONONITRATE 30 MG TAB.ER.24H PO SCH (08:40)
[2022-10-10] MEDS: lisinopriL 20 MG TABLET PO SCH (08:41)
[2022-10-10] MEDS: ATORVASTATIN 20 MG TABLET PO SCH (08:41)
[2022-10-10] MEDS: METOPROLOL TARTRATE 25 MG TABLET PO SCH ×2 (08:42→21:28)
[2022-10-10] MEDS: AZITHROMYCIN 500 MG in NS 250 ML IV SCH (10:33)
[2022-10-10] MEDS: INSULIN LISPRO SLIDING SCALE 100 UNITS/ML, 3 ML VIAL (humaLOG) SUBCUT PRN ×2 (11:42→21:40)
[2022-10-11] VITALS (25 sets, daily range): BP systolic 131–168
[2022-10-11] MEDS: HEPARIN 25,000 UNITS in 250 ML PREMIX IV PRN ×3 (04:48→15:20)
[2022-10-11] MEDS: hydrALAZINE HCL 25 MG TABLET PO SCH ×3 (05:52→21:07)
[2022-10-11 06:09] LABS: BASOPHILS % (AUTO) 0.5 % (0.0-2.0); EOSINOPHILS # (AUTO) 0.1 K/uL (0.0-0.4); EOSINOPHILS % (AUTO) 1.5 % (0.0-4.0); HEMATOCRIT 26.2 % (36-54); HEMOGLOBIN 8.9 g/dL (14.0-18.0); LYMPHOCYTES # (AUTO) 0.8 K/uL (1.0-5.5); MEAN CORPUSCULAR HEMOGLOBIN 30 pg (27-31); MEAN CORPUSCULAR HGB CONC 34 % (32-36); MEAN CORPUSCULAR VOLUME 90 fL (79.0-98.0); MONOCYTES # (AUTO) 0.6 K/uL (0.0-1.0); NEUTROPHILS # (AUTO) 5.5 K/uL (1.8-7.7); PLATELET COUNT (AUTO) 222 K/uL (130-430); RED BLOOD CELL COUNT(AUTO) 2.93 MIL/uL (4.2-6.2); RED CELL DISTRIBUTION WIDTH 14.2 % (9.0-15.0); WHITE BLOOD COUNT (AUTO) 6.9 K/uL (4.8-10.8)
[2022-10-11 06:19] LABS: ANION GAP 13 (5-15); CALCIUM 8.6 mg/dL (8.4-11.0); CHLORIDE 112 mmol/L (98-107); CREATININE 1.98 mg/dL (0.55-1.30); GLUCOSE 106 mg/dL (70-99); UREA NITROGEN, BLOOD 46 mg/dL (8-21)
[2022-10-11] MEDS: cefTRIAXone 1 GM in D5W 50 ML IV SCH (09:15)
[2022-10-11] MEDS: ISOSORBIDE MONONITRATE 30 MG TAB.ER.24H PO SCH (09:15)
[2022-10-11] MEDS: METOPROLOL TARTRATE 25 MG TABLET PO SCH ×2 (09:15→21:06)
[2022-10-11] MEDS: ATORVASTATIN 20 MG TABLET PO SCH (09:15)
[2022-10-11] MEDS: lisinopriL 20 MG TABLET PO SCH (09:16)
[2022-10-11] MEDS: AZITHROMYCIN 500 MG in NS 250 ML IV SCH (11:01)
[2022-10-11] MEDS: INSULIN LISPRO SLIDING SCALE 100 UNITS/ML, 3 ML VIAL (humaLOG) SUBCUT PRN ×3 (11:25→21:09)
[2022-10-11] MEDS: hydrALAZINE HCL 20 MG/ML VIAL IVP PRN (11:35)
[2022-10-12] VITALS (24 sets, daily range): BP systolic 124–199
[2022-10-12] MEDS: hydrALAZINE HCL 20 MG/ML VIAL IVP PRN ×2 (01:06→11:38)
[2022-10-12] MEDS: HEPARIN 25,000 UNITS in 250 ML PREMIX IV PRN (03:05)
[2022-10-12 04:12] LABS: BASOPHILS % (AUTO) 0.5 % (0.0-2.0); EOSINOPHILS # (AUTO) 0.2 K/uL (0.0-0.4); HEMATOCRIT 27.5 % (36-54); HEMOGLOBIN 9.3 g/dL (14.0-18.0); LYMPHOCYTES # (AUTO) 0.7 K/uL (1.0-5.5); MEAN CORPUSCULAR HEMOGLOBIN 30 pg (27-31); MEAN CORPUSCULAR HGB CONC 34 % (32-36); MEAN CORPUSCULAR VOLUME 90 fL (79.0-98.0); MONOCYTES # (AUTO) 0.5 K/uL (0.0-1.0); MONOCYTES % (AUTO) 6.9 % (1.7-9.3); NEUTROPHILS # (AUTO) 5.6 K/uL (1.8-7.7); NEUTROPHILS % (AUTO) 79.6 % (40.0-70.0); PLATELET COUNT (AUTO) 239 K/uL (130-430); RED BLOOD CELL COUNT(AUTO) 3.07 MIL/uL (4.2-6.2); RED CELL DISTRIBUTION WIDTH 13.9 % (9.0-15.0); WHITE BLOOD COUNT (AUTO) 7.1 K/uL (4.8-10.8)
[2022-10-12 04:39] LABS: ANION GAP 11 (5-15); CALCIUM 8.6 mg/dL (8.4-11.0); CHLORIDE 112 mmol/L (98-107); GLUCOSE 137 mg/dL (70-99); UREA NITROGEN, BLOOD 41 mg/dL (8-21)
[2022-10-12] MEDS: hydrALAZINE HCL 25 MG TABLET PO SCH ×3 (05:07→23:28)
[2022-10-12] MEDS: INSULIN LISPRO SLIDING SCALE 100 UNITS/ML, 3 ML VIAL (humaLOG) SUBCUT PRN ×2 (06:13→11:34)
[2022-10-12] MEDS: ATORVASTATIN 20 MG TABLET PO SCH (08:09)
[2022-10-12] MEDS: lisinopriL 20 MG TABLET PO SCH (08:10)
[2022-10-12] MEDS: METOPROLOL TARTRATE 25 MG TABLET PO SCH ×3 (08:11→22:15)
[2022-10-12] MEDS: ISOSORBIDE MONONITRATE 30 MG TAB.ER.24H PO SCH (08:11)
[2022-10-12] MEDS: cefTRIAXone 1 GM in D5W 50 ML IV SCH (08:12)
[2022-10-12] MEDS ORDERED: METOCLOPRAMIDE HCL 10 MG/2 ML VIAL IVP ONE (10:00)
[2022-10-12] MEDS: AZITHROMYCIN 500 MG in NS 250 ML IV SCH (10:11)
[2022-10-12] MEDS: CALCIUM CARBONATE 500 MG/ TAB.CHEW PO ONE ×3 (10:30→11:02)
[2022-10-12] MEDS ORDERED: hydrALAZINE HCL 25 MG TABLET PO ONE (12:30)
[2022-10-12] MEDS ORDERED: FUROSEMIDE 40 MG/4 ML VIAL IVP ONE (16:45)
[2022-10-12] MEDS ORDERED: ASPIRIN 81 MG TAB.CHEW PO ONE (19:00)
[2022-10-12] MEDS: HEPARIN SODIUM,PORCINE 5,000 UNITS/ML VIAL SUBCUT SCH (21:59)
[2022-10-13] VITALS (24 sets, daily range): BP systolic 122–169
[2022-10-13] MEDS: HEPARIN SODIUM,PORCINE 5,000 UNITS/ML VIAL SUBCUT SCH ×3 (05:21→22:04)
[2022-10-13] MEDS: hydrALAZINE HCL 25 MG TABLET PO SCH ×3 (05:31→17:41)
[2022-10-13 07:34] LABS: BASOPHILS % (AUTO) 0.5 % (0.0-2.0); EOSINOPHILS # (AUTO) 0.2 K/uL (0.0-0.4); EOSINOPHILS % (AUTO) 3.1 % (0.0-4.0); HEMATOCRIT 26.5 % (36-54); HEMOGLOBIN 8.8 g/dL (14.0-18.0); LYMPHOCYTES # (AUTO) 0.7 K/uL (1.0-5.5); LYMPHOCYTES % (AUTO) 10.8 % (20.5-51.5); MEAN CORPUSCULAR HEMOGLOBIN 30 pg (27-31); MEAN CORPUSCULAR HGB CONC 33 % (32-36); MEAN CORPUSCULAR VOLUME 90 fL (79.0-98.0); MONOCYTES # (AUTO) 0.5 K/uL (0.0-1.0); MONOCYTES % (AUTO) 7.9 % (1.7-9.3); NEUTROPHILS # (AUTO) 5.3 K/uL (1.8-7.7); NEUTROPHILS % (AUTO) 77.7 % (40.0-70.0); PLATELET COUNT (AUTO) 246 K/uL (130-430); RED BLOOD CELL COUNT(AUTO) 2.95 MIL/uL (4.2-6.2); RED CELL DISTRIBUTION WIDTH 13.9 % (9.0-15.0); WHITE BLOOD COUNT (AUTO) 6.8 K/uL (4.8-10.8)
[2022-10-13 07:35] LABS: ANION GAP 12 (5-15); CALCIUM 8.8 mg/dL (8.4-11.0); CHLORIDE 112 mmol/L (98-107); CREATININE 1.89 mg/dL (0.55-1.30); GLUCOSE 112 mg/dL (70-99); UREA NITROGEN, BLOOD 36 mg/dL (8-21)
[2022-10-13] MEDS: ISOSORBIDE MONONITRATE 30 MG TAB.ER.24H PO SCH (08:26)
[2022-10-13] MEDS: METOPROLOL TARTRATE 25 MG TABLET PO SCH ×3 (08:27→22:03)
[2022-10-13] MEDS: ASPIRIN 81 MG TAB.CHEW PO SCH (08:27)
[2022-10-13] MEDS: ATORVASTATIN 20 MG TABLET PO SCH (08:28)
[2022-10-13] MEDS: lisinopriL 20 MG TABLET PO SCH (08:28)
[2022-10-13] MEDS: cefTRIAXone 1 GM in D5W 50 ML IV SCH (08:51)
[2022-10-13] MEDS: AZITHROMYCIN 500 MG in NS 250 ML IV SCH (10:19)
[2022-10-13] MEDS: INSULIN LISPRO SLIDING SCALE 100 UNITS/ML, 3 ML VIAL (humaLOG) SUBCUT PRN ×2 (11:33→17:43)
[2022-10-13] MEDS ORDERED: FUROSEMIDE 20 MG/2 ML VIAL IVP ONE (15:00)
[2022-10-14] VITALS (11 sets, daily range): BP systolic 147–169
[2022-10-14] MEDS: hydrALAZINE HCL 25 MG TABLET PO SCH ×5 (01:43→21:40)
[2022-10-14] MEDS: HEPARIN SODIUM,PORCINE 5,000 UNITS/ML VIAL SUBCUT SCH ×2 (05:39→14:00)
[2022-10-14 06:40] LABS: BASOPHILS % (AUTO) 0.4 % (0.0-2.0); EOSINOPHILS # (AUTO) 0.4 K/uL (0.0-0.4); EOSINOPHILS % (AUTO) 5.4 % (0.0-4.0); HEMATOCRIT 26.4 % (36-54); LYMPHOCYTES # (AUTO) 0.9 K/uL (1.0-5.5); LYMPHOCYTES % (AUTO) 12.9 % (20.5-51.5); MEAN CORPUSCULAR HEMOGLOBIN 31 pg (27-31); MEAN CORPUSCULAR HGB CONC 34 % (32-36); MEAN CORPUSCULAR VOLUME 89 fL (79.0-98.0); MONOCYTES # (AUTO) 0.5 K/uL (0.0-1.0); MONOCYTES % (AUTO) 7.4 % (1.7-9.3); NEUTROPHILS # (AUTO) 4.9 K/uL (1.8-7.7); NEUTROPHILS % (AUTO) 73.9 % (40.0-70.0); PLATELET COUNT (AUTO) 240 K/uL (130-430); RED BLOOD CELL COUNT(AUTO) 2.95 MIL/uL (4.2-6.2); RED CELL DISTRIBUTION WIDTH 14.3 % (9.0-15.0); WHITE BLOOD COUNT (AUTO) 6.7 K/uL (4.8-10.8)
[2022-10-14 07:13] LABS: ANION GAP 9 (5-15); CALCIUM 8.9 mg/dL (8.4-11.0); CHLORIDE 110 mmol/L (98-107); CREATININE 1.82 mg/dL (0.55-1.30); GLUCOSE 133 mg/dL (70-99); UREA NITROGEN, BLOOD 34 mg/dL (8-21)
[2022-10-14] MEDS: ISOSORBIDE MONONITRATE 30 MG TAB.ER.24H PO SCH (08:20)
[2022-10-14] MEDS: ATORVASTATIN 20 MG TABLET PO SCH (08:20)
[2022-10-14] MEDS: METOPROLOL TARTRATE 25 MG TABLET PO SCH ×3 (08:21→21:27)
[2022-10-14] MEDS: cefTRIAXone 1 GM in D5W 50 ML IV SCH (08:22)
[2022-10-14] MEDS: lisinopriL 20 MG TABLET PO SCH (08:22)
[2022-10-14] MEDS: ASPIRIN 81 MG TAB.CHEW PO SCH (08:22)
[2022-10-14] MEDS: INSULIN LISPRO SLIDING SCALE 100 UNITS/ML, 3 ML VIAL (humaLOG) SUBCUT PRN ×2 (11:44→18:09)
[2022-10-14] MEDS ORDERED: FUROSEMIDE 20 MG/2 ML VIAL IVP ONE (14:00)
[2022-10-15] MEDS: hydrALAZINE HCL 25 MG TABLET PO SCH ×3 (06:00→21:56)
[2022-10-15 08:44] VITALS: BP_SYST 164
[2022-10-15 08:56] LABS: BASOPHILS % (AUTO) 0.4 % (0.0-2.0); EOSINOPHILS # (AUTO) 0.3 K/uL (0.0-0.4); EOSINOPHILS % (AUTO) 4.5 % (0.0-4.0); HEMATOCRIT 27.6 % (36-54); HEMOGLOBIN 9.3 g/dL (14.0-18.0); LYMPHOCYTES # (AUTO) 0.6 K/uL (1.0-5.5); MEAN CORPUSCULAR HEMOGLOBIN 30 pg (27-31); MEAN CORPUSCULAR HGB CONC 34 % (32-36); MEAN CORPUSCULAR VOLUME 90 fL (79.0-98.0); MONOCYTES # (AUTO) 0.4 K/uL (0.0-1.0); MONOCYTES % (AUTO) 5.1 % (1.7-9.3); NEUTROPHILS # (AUTO) 5.9 K/uL (1.8-7.7); PLATELET COUNT (AUTO) 248 K/uL (130-430); RED BLOOD CELL COUNT(AUTO) 3.08 MIL/uL (4.2-6.2); RED CELL DISTRIBUTION WIDTH 13.8 % (9.0-15.0); WHITE BLOOD COUNT (AUTO) 7.2 K/uL (4.8-10.8)
[2022-10-15 09:15] LABS: ANION GAP 9 (5-15); CALCIUM 8.8 mg/dL (8.4-11.0); CHLORIDE 110 mmol/L (98-107); CREATININE 1.74 mg/dL (0.55-1.30); GLUCOSE 163 mg/dL (70-99); UREA NITROGEN, BLOOD 36 mg/dL (8-21)
[2022-10-15] MEDS ORDERED: REGADENOSON 0.4 MG/5 ML SYRINGE IVP ONE (10:00)
[2022-10-15 11:38] VITALS: BP_SYST 167
[2022-10-15] MEDS: ASPIRIN 81 MG TAB.CHEW PO SCH (11:55)
[2022-10-15] MEDS: lisinopriL 20 MG TABLET PO SCH (11:56)
[2022-10-15] MEDS: ISOSORBIDE MONONITRATE 30 MG TAB.ER.24H PO SCH (11:56)
[2022-10-15] MEDS: METOPROLOL TARTRATE 25 MG TABLET PO SCH ×3 (11:57→21:55)
[2022-10-15] MEDS: ATORVASTATIN 20 MG TABLET PO SCH (11:57)
[2022-10-15] MEDS: cefTRIAXone 1 GM in D5W 50 ML IV SCH (11:58)
[2022-10-15] MEDS: HEPARIN SODIUM,PORCINE 5,000 UNITS/ML VIAL SUBCUT SCH (14:30)
[2022-10-15 15:31] VITALS: BP_SYST 140
[2022-10-15] MEDS: INSULIN LISPRO SLIDING SCALE 100 UNITS/ML, 3 ML VIAL (humaLOG) SUBCUT PRN (17:36)
[2022-10-15] MEDS ORDERED: FUROSEMIDE 20 MG TABLET PO ONE (18:15)
[2022-10-15 20:00] VITALS: BP_SYST 152
[2022-10-16] VITALS (8 sets, daily range): BP systolic 135–169
[2022-10-16] MEDS: hydrALAZINE HCL 25 MG TABLET PO SCH ×3 (06:40→22:24)
[2022-10-16 06:57] LABS: BASOPHILS % (AUTO) 0.8 % (0.0-2.0); EOSINOPHILS # (AUTO) 0.4 K/uL (0.0-0.4); EOSINOPHILS % (AUTO) 5.9 % (0.0-4.0); HEMATOCRIT 26.1 % (36-54); HEMOGLOBIN 8.9 g/dL (14.0-18.0); LYMPHOCYTES % (AUTO) 15.4 % (20.5-51.5); MEAN CORPUSCULAR HEMOGLOBIN 30 pg (27-31); MEAN CORPUSCULAR HGB CONC 34 % (32-36); MEAN CORPUSCULAR VOLUME 88 fL (79.0-98.0); MONOCYTES # (AUTO) 0.5 K/uL (0.0-1.0); MONOCYTES % (AUTO) 7.4 % (1.7-9.3); NEUTROPHILS # (AUTO) 4.5 K/uL (1.8-7.7); NEUTROPHILS % (AUTO) 70.5 % (40.0-70.0); PLATELET COUNT (AUTO) 250 K/uL (130-430); RED BLOOD CELL COUNT(AUTO) 2.96 MIL/uL (4.2-6.2); RED CELL DISTRIBUTION WIDTH 13.7 % (9.0-15.0); WHITE BLOOD COUNT (AUTO) 6.4 K/uL (4.8-10.8)
[2022-10-16 08:02] LABS: ANION GAP 8 (5-15); CALCIUM 8.4 mg/dL (8.4-11.0); CHLORIDE 110 mmol/L (98-107); CREATININE 1.88 mg/dL (0.55-1.30); GLUCOSE 144 mg/dL (70-99); UREA NITROGEN, BLOOD 33 mg/dL (8-21)
[2022-10-16] MEDS: METOPROLOL TARTRATE 25 MG TABLET PO SCH ×3 (11:25→22:23)
[2022-10-16] MEDS: ATORVASTATIN 20 MG TABLET PO SCH (11:27)
[2022-10-16] MEDS: ISOSORBIDE MONONITRATE 30 MG TAB.ER.24H PO SCH (11:27)
[2022-10-16] MEDS: ASPIRIN 81 MG TAB.CHEW PO SCH (11:27)
[2022-10-16] MEDS: lisinopriL 20 MG TABLET PO SCH (11:28)
[2022-10-16] MEDS: HEPARIN SODIUM,PORCINE 5,000 UNITS/ML VIAL SUBCUT SCH (11:29)
[2022-10-16] MEDS: INSULIN LISPRO SLIDING SCALE 100 UNITS/ML, 3 ML VIAL (humaLOG) SUBCUT PRN ×2 (17:37→22:37)
[2022-10-16] MEDS ORDERED: FUROSEMIDE 20 MG TABLET PO ONE (17:45)
[2022-10-17 00:33] VITALS: BP_SYST 161
[2022-10-17] MEDS: hydrALAZINE HCL 25 MG TABLET PO SCH (05:27)
[2022-10-17 05:31] VITALS: BP_SYST 156
[2022-10-17 06:58] LABS: BASOPHILS # (AUTO) 0.1 K/uL (0.0-0.2); BASOPHILS % (AUTO) 0.8 % (0.0-2.0); EOSINOPHILS # (AUTO) 0.4 K/uL (0.0-0.4); EOSINOPHILS % (AUTO) 5.1 % (0.0-4.0); HEMATOCRIT 27.3 % (36-54); HEMOGLOBIN 9.4 g/dL (14.0-18.0); LYMPHOCYTES # (AUTO) 1.1 K/uL (1.0-5.5); LYMPHOCYTES % (AUTO) 15.2 % (20.5-51.5); MEAN CORPUSCULAR HEMOGLOBIN 31 pg (27-31); MEAN CORPUSCULAR HGB CONC 35 % (32-36); MEAN CORPUSCULAR VOLUME 89 fL (79.0-98.0); MONOCYTES # (AUTO) 0.6 K/uL (0.0-1.0); MONOCYTES % (AUTO) 8.3 % (1.7-9.3); NEUTROPHILS % (AUTO) 70.6 % (40.0-70.0); PLATELET COUNT (AUTO) 269 K/uL (130-430); RED BLOOD CELL COUNT(AUTO) 3.08 MIL/uL (4.2-6.2); RED CELL DISTRIBUTION WIDTH 13.9 % (9.0-15.0); WHITE BLOOD COUNT (AUTO) 7.1 K/uL (4.8-10.8)
[2022-10-17 08:22] VITALS: BP_SYST 156
[2022-10-17 09:12] LABS: ANION GAP 10 (5-15); CALCIUM 8.7 mg/dL (8.4-11.0); CHLORIDE 108 mmol/L (98-107); CREATININE 1.93 mg/dL (0.55-1.30); GLUCOSE 128 mg/dL (70-99); UREA NITROGEN, BLOOD 35 mg/dL (8-21)
[2022-10-17] MEDS: ATORVASTATIN 20 MG TABLET PO SCH (10:39)
[2022-10-17] MEDS: METOPROLOL TARTRATE 25 MG TABLET PO SCH (10:39)
[2022-10-17] MEDS: lisinopriL 20 MG TABLET PO SCH (10:40)
[2022-10-17] MEDS: ISOSORBIDE MONONITRATE 30 MG TAB.ER.24H PO SCH (10:40)
[2022-10-17] MEDS: ASPIRIN 81 MG TAB.CHEW PO SCH (10:41)
[2022-10-17] MEDS: HEPARIN SODIUM,PORCINE 5,000 UNITS/ML VIAL SUBCUT SCH (10:42)
[2022-10-17 11:34] VITALS: BP_SYST 147
[2022-10-17 11:40] VITALS: BP_SYST 147
== END 2022-10-17 12:35 | disposition short-term general hospital (02) | DRG 871 ==
LOC: SED 07:08 → STU 08:13 → SIC 10-09 08:09 → STU 10-14 17:09
PROVIDERS: ADMIT General Practice; ATTEND General Practice
PROC: 5A09357 Assistance with Respiratory Ventilation, Less than 24 Consecutive Hours, Continuous Positive Airway Pressure (ICD-10-PCS; principal; 2022-10-08)
PROC: 5A09457 Assistance with Respiratory Ventilation, 24-96 Consecutive Hours, Continuous Positive Airway Pressure (ICD-10-PCS; 2022-10-09)
PROC: 02HV33Z Insertion of Infusion Device into Superior Vena Cava, Percutaneous Approach (ICD-10-PCS; 2022-10-10)
PROC: B548ZZA Ultrasonography of Superior Vena Cava, Guidance (ICD-10-PCS; 2022-10-10)
PROC: 5A09357 Assistance with Respiratory Ventilation, Less than 24 Consecutive Hours, Continuous Positive Airway Pressure (ICD-10-PCS; 2022-10-11)
DX: A41.9 Sepsis, unspecified organism (principal); I21.A1 Myocardial infarction type 2; I50.43 Acute on chronic combined systolic (congestive) and diastolic (congestive) heart failure; J69.0 Pneumonitis due to inhalation of food and vomit; N17.0 Acute kidney failure with tubular necrosis; J96.01 Acute respiratory failure with hypoxia; I13.0 Hypertensive heart and chronic kidney disease with heart failure and stage 1 through stage 4 chronic kidney disease, or unspecified chronic kidney disease; D63.8 Anemia in other chronic diseases classified elsewhere; E11.65 Type 2 diabetes mellitus with hyperglycemia; F17.200 Nicotine dependence, unspecified, uncomplicated; N18.9 Chronic kidney disease, unspecified; E11.22 Type 2 diabetes mellitus with diabetic chronic kidney disease; E78.5 Hyperlipidemia, unspecified; Z20.822 Contact with and (suspected) exposure to COVID-19
CPT/HCPCS: 36415; 36600; 71045; 76770; 80048; 80053; 82550; 82803-TC; 82962; 83037; 83605; 83735; 83880; 84484; 85025; 85379; 85610-TC; 85730-TC; 87040; 87081; 93005; 93017; 93306; 93970; 94640; 94660; 94760; 97112-GP; 97116-GP; 97530-GP; 99285; A9500; G0378; J0360; J0456; J0696; J1644; J1940; J2060; J2405; J2543; J2765; J2785; J3490; J7050; J7060; J7613

== ENCOUNTER 2022-11-12 17:55 | Inpatient (IN) | payer OTHER, MEDICARE ==
[~2022-11-12] VITALS: Ht 175.3 cm; Wt 70.8 kg
[~2022-11-12 17:55] MED LIST changes: +AMLO10TA88 PO; -AMOX-426 PO; +ATOR-1 PO; -GLIP10TA PO; +HYDR25TA4 PO; +LINA5TAB2 PO; -LIP40 PO; -LISI1TAB57 PO; +LISI40TA13 PO; -METF1000 PO; -NOR10 PO
[2022-11-12 17:59] VITALS: BP_SYST 119
--- NOTE | 2022-11-12 18:06 | NUR ---
Patient triaged and placed in waiting room. VSS and patient appears in no acute distress at this time. Accompanied by family, awaiting available bed, and MD notified of need for MSE.
--- NOTE | 2022-11-12 19:32 | NUR ---
Dr. Burroughs is in triage room examining the patient.
--- NOTE | 2022-11-12 19:55 | NUR ---
Pt in radiology, will do EKG when returns.
[2022-11-12 20:17] LABS: BASOPHILS % (AUTO) 0.6 % (0.0-2.0); EOSINOPHILS # (AUTO) 0.2 K/uL (0.0-0.4); EOSINOPHILS % (AUTO) 2.3 % (0.0-4.0); HEMATOCRIT 27.7 % (36-54); HEMOGLOBIN 9.2 g/dL (14.0-18.0); LYMPHOCYTES # (AUTO) 0.7 K/uL (1.0-5.5); LYMPHOCYTES % (AUTO) 9.6 % (20.5-51.5); MEAN CORPUSCULAR HEMOGLOBIN 29 pg (27-31); MEAN CORPUSCULAR HGB CONC 33 % (32-36); MEAN CORPUSCULAR VOLUME 88 fL (79.0-98.0); MONOCYTES # (AUTO) 0.6 K/uL (0.0-1.0); MONOCYTES % (AUTO) 7.7 % (1.7-9.3); NEUTROPHILS # (AUTO) 5.9 K/uL (1.8-7.7); NEUTROPHILS % (AUTO) 79.8 % (40.0-70.0); PLATELET COUNT (AUTO) 375 K/uL (130-430); RED BLOOD CELL COUNT(AUTO) 3.15 MIL/uL (4.2-6.2); RED CELL DISTRIBUTION WIDTH 13.9 % (9.0-15.0); WHITE BLOOD COUNT (AUTO) 7.4 K/uL (4.8-10.8)
[2022-11-12 20:32] LABS: ALANINE AMINOTRANSFERASE 31 U/L (12-78); ALBUMIN 2.8 g/dL (3.4-4.8); ANION GAP 13 (5-15); ASPARTATE AMINOTRANSFERASE 21 U/L (10-37); CALCIUM 8.7 mg/dL (8.4-11.0); CHLORIDE 105 mmol/L (98-107); CREATININE 2.35 mg/dL (0.55-1.30); GLUCOSE 104 mg/dL (70-99); TOTAL BILIRUBIN 0.4 mg/dL (0.0-1.0); UREA NITROGEN, BLOOD 49 mg/dL (8-21)
--- NOTE | 2022-11-12 20:42 | NUR ---
COVID SAMPLE COLLECTED AND SENT TO LAB
[2022-11-12] MEDS ORDERED: cefTRIAXone 1 GM IVPB PREMIX 50 ML IV ONE (21:45)
[2022-11-12] MEDS ORDERED: AZITHROMYCIN 500 MG in NS 250 ML IV ONE (21:45)
[2022-11-12] MEDS ORDERED: ONDANSETRON HCL 4 MG/2 ML VIAL IVP PRN (22:15)
[2022-11-12] MEDS ORDERED: ACETAMINOPHEN 325 MG TABLET PO PRN (22:15)
[2022-11-12] MEDS ORDERED: DEXTROSE 50% JECT 50 ML DISP.SYRIN IVP PRN (22:15)
[2022-11-12] MEDS ORDERED: MORPHINE 2 MG/ML INJ. SYRINGE IVP PRN ×2 (22:15)
[2022-11-12] MEDS ORDERED: MAGNESIUM SULFATE 50 ML IV PRN (22:15)
[2022-11-12] MEDS ORDERED: ALBUTEROL SULFATE 0.083% 2.5 MG/3 ML VIAL.NEB INH PRN (22:15)
[2022-11-12] MEDS ORDERED: DOCUSATE SODIUM 100 MG CAPSULE PO PRN (22:15)
[2022-11-12] MEDS ORDERED: POTASSIUM CHLORIDE 20 MEQ TAB.PRT.SR PO PRN (22:15)
[2022-11-12] MEDS ORDERED: MUPIROCIN 2% TOPICAL OINTMENT 22 GM NS PRN (22:15)
--- NOTE | 2022-11-12 22:34 | NUR ---
Admit bed requested Patient will be admitted to care of Dr. LOMBARDO. Admitted to TELEMETRY unit. Diagnosis CHF Inpatient (Yes or No) YES Observation (Yes or No) NO Orientation concerns or request close to nursing station (Yes or No) NO Covid Status NEGATIVE On vent or bipap NO Isolation requirements NONE Needs a sitter NO From Home (Yes or if No enter name of facility) HOME Requires Dialysis (Yes or No) NO Med Rec Completed (Yes of No) YES
[2022-11-12 23:10] VITALS: BP_SYST 119
[2022-11-12] MEDS ORDERED: AZITHROMYCIN 500 MG/VIAL (ZITHROMAX) IV ONE (23:44)
[2022-11-13] MEDS ORDERED: PIPERACILLIN/TAZO 3.375/DEX-IS 50 ML IV SCH
[2022-11-13 00:59] LABS: ANION GAP 10 (5-15); CALCIUM 8.5 mg/dL (8.4-11.0); CHLORIDE 106 mmol/L (98-107); CREATININE 2.16 mg/dL (0.55-1.30); GLUCOSE 103 mg/dL (70-99); UREA NITROGEN, BLOOD 46 mg/dL (8-21)
--- NOTE | 2022-11-13 04:00 | NUR ---
pt resting in the bed on the monitor
--- NOTE | 2022-11-13 04:47 | NUR ---
PT became sob while attempting to use urinal. respiratory called and gave pt breathing treatment.
[2022-11-13 07:32] LABS: BASOPHILS % (AUTO) 0.5 % (0.0-2.0); EOSINOPHILS # (AUTO) 0.1 K/uL (0.0-0.4); EOSINOPHILS % (AUTO) 1.6 % (0.0-4.0); HEMATOCRIT 26.1 % (36-54); HEMOGLOBIN 8.8 g/dL (14.0-18.0); LYMPHOCYTES # (AUTO) 0.5 K/uL (1.0-5.5); LYMPHOCYTES % (AUTO) 6.2 % (20.5-51.5); MEAN CORPUSCULAR HEMOGLOBIN 30 pg (27-31); MEAN CORPUSCULAR HGB CONC 34 % (32-36); MEAN CORPUSCULAR VOLUME 88 fL (79.0-98.0); MONOCYTES # (AUTO) 0.4 K/uL (0.0-1.0); MONOCYTES % (AUTO) 4.8 % (1.7-9.3); NEUTROPHILS # (AUTO) 6.6 K/uL (1.8-7.7); NEUTROPHILS % (AUTO) 86.9 % (40.0-70.0); PLATELET COUNT (AUTO) 336 K/uL (130-430); RED BLOOD CELL COUNT(AUTO) 2.97 MIL/uL (4.2-6.2); RED CELL DISTRIBUTION WIDTH 14.1 % (9.0-15.0); WHITE BLOOD COUNT (AUTO) 7.6 K/uL (4.8-10.8)
--- NOTE | 2022-11-13 08:00 | NUR ---
ON DUTY RECEIVED THIS PT A/OX4, WITH SOB. LYING ON BED WAITING FOR BED. NO ACUTE DISTRESS. VS STABLE.
[2022-11-13] MEDS: amLODIPine BESYLATE 10 MG TABLET PO SCH (09:00)
[2022-11-13] MEDS: FUROSEMIDE 40 MG/4 ML VIAL IVP SCH (09:31)
[2022-11-13] MEDS: HEPARIN SODIUM,PORCINE 5,000 UNITS/ML VIAL SUBCUT SCH ×2 (09:37→21:36)
[2022-11-13] MEDS: ATORVASTATIN 20 MG TABLET PO SCH (10:45)
--- NOTE | 2022-11-13 11:28 | NUR ---
PEED AND POOPED ALL OVER THE BED. WITH EMT ASSISTANCE. LINEN AND GOWN BROWN CHANGED. PT WAS CLEANED.
[2022-11-13] MEDS ORDERED: CARVEDILOL 12.5 MG TABLET (COREG) PO ONE (13:15)
--- NOTE | 2022-11-13 13:33 | NUR ---
PT GOT BED 135B. PT WAS SENT TO FLOOR IN STABLE CONDITION. REPORT ENDORSED BEDSIDE TO RN/FLOOR.
--- NOTE | 2022-11-13 13:33 | NUR ---
ADMISSION NOTES Admission Note Received patient from ER with diagnosis of CHF. Initial Plan of Care discussed-patient verbalized understanding. caregiver at bedside. Oriented to room, call light, pain management and safety. vitals stable. on 2 l nc. saturation 94%. NOT IN ACUTE DISTRESS.
[2022-11-13 13:35] VITALS: BP_SYST 129
[2022-11-13] MEDS ORDERED: SACUBITRIL/VALSARTAN 24 MG-26 MG 1 TABLET PO ONE (14:00)
[2022-11-13] MEDS ORDERED: DILTIAZEM HCL 30 MG TABLET PO ONE (14:00)
[2022-11-13 16:00] VITALS: BP_SYST 127
[2022-11-13] MEDS ORDERED: ISOSORBIDE MONONITRATE 30 MG TAB.ER.24H PO ONE (16:00)
--- NOTE | 2022-11-13 17:15 | NUR ---
PT STABLE NOT IN ACUTE DISTRESS. BP 127/70, HR 90. RESTING COMFORTABLY. DENIES ANY CHEST PAIN OR SOB,WILL CONTINUE TO MONITOR
--- NOTE | 2022-11-13 19:30 | NUR ---
pt stable not in acute distress. denies any pain or sob. safety and fall precautions in place.needs attended report given to night rn
--- NOTE | 2022-11-13 20:00 | NUR ---
recieved pt from AM nurse. PT is aox4, ambulatory, NC 2L lungs are diminished at bases. pt is able to articulate needs. denies pain. VSS. pt is scheduled for thoracentesis tomorrow. consent attained. pt will be npo at midnight. will continue to monitor.
[2022-11-13 20:23] VITALS: BP_SYST 132
[2022-11-13 20:24] VITALS: BP_SYST 132
[2022-11-13] MEDS: INSULIN LISPRO SLIDING SCALE 100 UNITS/ML, 3 ML VIAL (humaLOG) SUBCUT PRN (21:31)
[2022-11-13] MEDS: cefTRIAXone 1 GM in D5W 50 ML IV SCH (21:32)
[2022-11-13] MEDS: DILTIAZEM HCL 30 MG TABLET PO SCH (21:33)
[2022-11-13] MEDS: CARVEDILOL 12.5 MG TABLET (COREG) PO SCH (21:34)
[2022-11-13] MEDS: AZITHROMYCIN 500 MG in NS 250 ML IV SCH (21:34)
[2022-11-13] MEDS: SACUBITRIL/VALSARTAN 24 MG-26 MG 1 TABLET PO SCH (21:37)
[2022-11-13] MEDS ORDERED: SACUBITRIL/VALSARTAN 24 MG-26 MG 1 TABLET PO SCH (22:00)
[2022-11-14 02:24] VITALS: BP_SYST 136
[2022-11-14 06:06] LABS: BASOPHILS % (AUTO) 0.8 % (0.0-2.0); EOSINOPHILS # (AUTO) 0.2 K/uL (0.0-0.4); EOSINOPHILS % (AUTO) 2.8 % (0.0-4.0); HEMATOCRIT 23.9 % (36-54); HEMOGLOBIN 8.2 g/dL (14.0-18.0); LYMPHOCYTES # (AUTO) 0.7 K/uL (1.0-5.5); LYMPHOCYTES % (AUTO) 12.3 % (20.5-51.5); MEAN CORPUSCULAR HEMOGLOBIN 30 pg (27-31); MEAN CORPUSCULAR HGB CONC 34 % (32-36); MEAN CORPUSCULAR VOLUME 87 fL (79.0-98.0); MONOCYTES # (AUTO) 0.5 K/uL (0.0-1.0); MONOCYTES % (AUTO) 8.5 % (1.7-9.3); NEUTROPHILS # (AUTO) 4.5 K/uL (1.8-7.7); NEUTROPHILS % (AUTO) 75.6 % (40.0-70.0); PLATELET COUNT (AUTO) 352 K/uL (130-430); RED BLOOD CELL COUNT(AUTO) 2.75 MIL/uL (4.2-6.2); RED CELL DISTRIBUTION WIDTH 14.2 % (9.0-15.0); WHITE BLOOD COUNT (AUTO) 5.9 K/uL (4.8-10.8)
[2022-11-14 06:27] LABS: ANION GAP 10 (5-15); CALCIUM 8.1 mg/dL (8.4-11.0); CHLORIDE 110 mmol/L (98-107); CREATININE 2.34 mg/dL (0.55-1.30); GLUCOSE 94 mg/dL (70-99); UREA NITROGEN, BLOOD 47 mg/dL (8-21)
--- NOTE | 2022-11-14 07:30 | NUR ---
OPENING NOTES; PT RESTING IN BED, BREATHING NON-LABORED AND REGULAR ON 2L O2 VIA NC. IV S/L REMAIN INTACT AND PATENT. NO IV INFILTRATION OR INFECTION NOTED. AWAITING FOR US THORACENTESIS TODAY. BED IS LOCKED AND AT LOW POSITION. SAFETY PRECAUTION IN PLACE. WILL CONT TO MONITOR
[2022-11-14 08:00] VITALS: BP_SYST 112
[2022-11-14] MEDS: amLODIPine BESYLATE 10 MG TABLET PO SCH (08:23)
[2022-11-14] MEDS: ATORVASTATIN 20 MG TABLET PO SCH (08:24)
[2022-11-14] MEDS: ISOSORBIDE MONONITRATE 30 MG TAB.ER.24H PO SCH (08:24)
[2022-11-14] MEDS: DILTIAZEM HCL 30 MG TABLET PO SCH ×2 (08:25→21:04)
[2022-11-14] MEDS: CARVEDILOL 12.5 MG TABLET (COREG) PO SCH ×2 (08:25→21:06)
[2022-11-14] MEDS: SACUBITRIL/VALSARTAN 24 MG-26 MG 1 TABLET PO SCH ×2 (08:29→22:32)
[2022-11-14] MEDS: FUROSEMIDE 40 MG/4 ML VIAL IVP SCH (08:29)
--- NOTE | 2022-11-14 08:30 | NUR ---
MD ROUNDS; AT BEDSIDE, ASSESSING PT
[2022-11-14] MEDS: HEPARIN SODIUM,PORCINE 5,000 UNITS/ML VIAL SUBCUT SCH ×2 (08:37→21:30)
[2022-11-14 09:30] LABS: INR 1.2 (0.80-1.20); PROTHROMBIN TIME 11.6 SECS (9.5-12.5)
[2022-11-14 11:55] VITALS: BP_SYST 99
--- NOTE | 2022-11-14 12:00 | NUR ---
NOTES; NOTIFIED THAT PT IS GOING TO RECEIVED THORACENTESIS TMR BECAUSE DR CANNOT PERFORM IT TODAY. NOTIFIED PT.
--- NOTE | 2022-11-14 15:30 | NUR ---
NOTES; FAMILY AT BEDSIDE
[2022-11-14 16:00] VITALS: BP_SYST 96
--- NOTE | 2022-11-14 17:00 | NUR ---
NOTES; BS: 188, ADMINISTERED INSULIN ORDERED.PT TOLERATED WELL
[2022-11-14] MEDS: INSULIN LISPRO SLIDING SCALE 100 UNITS/ML, 3 ML VIAL (humaLOG) SUBCUT PRN (17:01)
[2022-11-14 17:30] VITALS: BP_SYST 109
--- NOTE | 2022-11-14 18:47 | NUR ---
CLOSING NOTES; PT RESTING IN BED, BREATHING NON-LABORED AND REGULAR ON 2L O2 VIA NC. IV S/L REMAIN INTACT AND PATENT. NO IV INFILTRATION OR INFECTION NOTED. DENIES ANY PAIN OR DISCOMFORT. BED IS LOCKED AND AT LOW POSITION. SAFETY PRECAUTION IN PLACE. ENCOURAGED PT TO USE CALL LIGHT FOR ASSISTANCE. FAMILY AT BEDSIDE. WILL ENDORSE CARE TO MARBLE CEILING INSTALLER NURSE.
--- NOTE | 2022-11-14 19:10 | NUR ---
CHANGE OF SHIFT; endorsed by day shift. for DX CHF. no signs of distress. on fall risk/ call light within reach.
[2022-11-14 20:45] VITALS: BP_SYST 110
--- NOTE | 2022-11-14 21:10 | NUR ---
NOTES: due medications given .BS checked no sliding scale coverage. IV antibiotic started on rt. ac. campus monitor shows atrial fib, controlled rate. denies any pain nor discomfort. on O2 @ 2 liters/nc. call light at bedside.
[2022-11-14] MEDS: cefTRIAXone 1 GM in D5W 50 ML IV SCH (21:19)
[2022-11-14] MEDS: AZITHROMYCIN 500 MG in NS 250 ML IV SCH (22:33)
--- NOTE | 2022-11-15 00:15 | NUR ---
NOTES: pt. was sleeping when checked. IV antibiotic still in progress. call light at bedside.
--- NOTE | 2022-11-15 03:47 | NUR ---
NOTES: pt. woke up and ambulated to the restroom with stand by assist.
[2022-11-15 04:01] VITALS: BP_SYST 126
--- NOTE | 2022-11-15 04:03 | NUR ---
NOTES; rechecked VS. BP 126/65. still on atrial fib, controlled rate. repositioned self and kept comfortable with layers of blanket.
--- NOTE | 2022-11-15 06:30 | NUR ---
CLOSING NOTES; pt. went back to sleep. no distress. O2 kept at 2liters/nc. needs attended. for further care and assistance. will endorse to incoming shift.call light within reach.
[2022-11-15 07:46] LABS: BASOPHILS % (AUTO) 0.7 % (0.0-2.0); EOSINOPHILS # (AUTO) 0.2 K/uL (0.0-0.4); EOSINOPHILS % (AUTO) 2.6 % (0.0-4.0); HEMATOCRIT 25.8 % (36-54); HEMOGLOBIN 8.4 g/dL (14.0-18.0); LYMPHOCYTES # (AUTO) 0.8 K/uL (1.0-5.5); LYMPHOCYTES % (AUTO) 13.2 % (20.5-51.5); MEAN CORPUSCULAR HEMOGLOBIN 29 pg (27-31); MEAN CORPUSCULAR HGB CONC 33 % (32-36); MEAN CORPUSCULAR VOLUME 88 fL (79.0-98.0); MONOCYTES # (AUTO) 0.5 K/uL (0.0-1.0); MONOCYTES % (AUTO) 8.5 % (1.7-9.3); NEUTROPHILS # (AUTO) 4.4 K/uL (1.8-7.7); PLATELET COUNT (AUTO) 351 K/uL (130-430); RED BLOOD CELL COUNT(AUTO) 2.92 MIL/uL (4.2-6.2); RED CELL DISTRIBUTION WIDTH 14.2 % (9.0-15.0); WHITE BLOOD COUNT (AUTO) 5.8 K/uL (4.8-10.8)
[2022-11-15 08:10] LABS: ANION GAP 8 (5-15); CALCIUM 8.1 mg/dL (8.4-11.0); CHLORIDE 109 mmol/L (98-107); CREATININE 2.52 mg/dL (0.55-1.30); GLUCOSE 106 mg/dL (70-99); UREA NITROGEN, BLOOD 48 mg/dL (8-21)
[2022-11-15 09:15] VITALS: BP_SYST 112
[2022-11-15] MEDS: ATORVASTATIN 20 MG TABLET PO SCH (09:24)
[2022-11-15] MEDS: amLODIPine BESYLATE 10 MG TABLET PO SCH (09:26)
[2022-11-15] MEDS: HEPARIN SODIUM,PORCINE 5,000 UNITS/ML VIAL SUBCUT SCH (09:28)
[2022-11-15 09:29] VITALS: BP_SYST 112
[2022-11-15] MEDS: SACUBITRIL/VALSARTAN 24 MG-26 MG 1 TABLET PO SCH (09:29)
[2022-11-15] MEDS: FUROSEMIDE 40 MG/4 ML VIAL IVP SCH (09:29)
[2022-11-15] MEDS: DILTIAZEM HCL 30 MG TABLET PO SCH (09:31)
[2022-11-15] MEDS: CARVEDILOL 12.5 MG TABLET (COREG) PO SCH (09:32)
[2022-11-15] MEDS: ISOSORBIDE MONONITRATE 30 MG TAB.ER.24H PO SCH (09:33)
--- NOTE | 2022-11-15 09:35 | NUR ---
US guide Thoracentesis performed today, 1.25L removed on the L lung. Patient's a/o x4, verbally responsive, lying in bed comfortably in no acute distress with no c/o pain or discomfort. Pt. tolerated the procedure well. BP 98/58; HR 102; RR 16; o2 sat on 2L 96%. Will monitor for any changes of condition. Puncture sites dressing's dry and intact.
[2022-11-15 11:27] VITALS: BP_SYST 116
[2022-11-15] MEDS: INSULIN LISPRO SLIDING SCALE 100 UNITS/ML, 3 ML VIAL (humaLOG) SUBCUT PRN (13:39)
[2022-11-15 15:23] VITALS: BP_SYST 95
[2022-11-15] MEDS ORDERED: AZIT500V2 IV (16:26)
[2022-11-15] MEDS ORDERED: CARV25TA55 PO (16:26)
--- NOTE | 2022-11-15 16:26 | NUR ---
CM: Per Allyson/Holland given bed # 6 RN report # [phone]. Allyson is arranging a transportation to cook pickled meat today. The pt does not meet criteria for ambulance transfer per Medicare guideline, he is able to walk 150 feet independently and can be safely sit in a non medical transportation. SHONDA Bright aware.
[2022-11-15] MEDS ORDERED: ROCPM1 IV (16:27)
[2022-11-15] MEDS ORDERED: DILT30TA35 PO (16:28)
[2022-11-15] MEDS ORDERED: FURO-149 PO (16:29)
[2022-11-15] MEDS ORDERED: ISOS30TA85 PO (16:30)
[2022-11-15] MEDS ORDERED: SACU1TAB PO (16:35)
[2022-11-15 16:56] VITALS: BP_SYST 104
--- NOTE | 2022-11-15 17:41 | NUR ---
NN: D/C Patient to [facility] [place] in [place] via wheelchair picked by the wagon driver from the facility. Patient given D/C instructions and plan of care. Patient verbalized understanding. MD discussed with patient the results and treatment provided. Patient in stable condition, ID band removed. IV catheter site on RAC, G20, intact and patent w/ no sign and symptoms of infection. Patient will have IV Ceftriaxone 1 gm for 5 days, Patient's aware. Patient educated on pain management. All belongings sent with patient. VSS. BP 104/66; RI 94; RR 16; Temp. 96.9, O2 sat on 2L sating 97%, RA 95%, Patient has no c/o pain or discomfort, and shortness of breath.
[2022-11-15] MEDS ORDERED: CARVEDILOL 25 MG TABLET (COREG) PO SCH (21:00)
== END 2022-11-15 20:17 | disposition home or self-care (01) | DRG 193 ==
LOC: SED 17:55 → STU 22:11
PROVIDERS: ADMIT Family Medicine; ATTEND Family Medicine
PROC: 0W9B3ZZ Drainage of Left Pleural Cavity, Percutaneous Approach (ICD-10-PCS; principal; 2022-11-15)
DX: J18.9 Pneumonia, unspecified organism (principal); I50.23 Acute on chronic systolic (congestive) heart failure; J96.01 Acute respiratory failure with hypoxia; N17.0 Acute kidney failure with tubular necrosis; J90 Pleural effusion, not elsewhere classified; I13.0 Hypertensive heart and chronic kidney disease with heart failure and stage 1 through stage 4 chronic kidney disease, or unspecified chronic kidney disease; J44.0 Chronic obstructive pulmonary disease with (acute) lower respiratory infection; I48.91 Unspecified atrial fibrillation; I25.10 Atherosclerotic heart disease of native coronary artery without angina pectoris; I25.5 Ischemic cardiomyopathy; N18.9 Chronic kidney disease, unspecified; E11.22 Type 2 diabetes mellitus with diabetic chronic kidney disease; Z20.822 Contact with and (suspected) exposure to COVID-19; Z88.0 Allergy status to penicillin; Z79.899 Other long term (current) drug therapy; Z79.01 Long term (current) use of anticoagulants; D63.1 Anemia in chronic kidney disease
CPT/HCPCS: 32555; 36415; 36600; 71045; 76604; 76770; 80048; 80053; 82803-TC; 82962; 83605; 83735; 83880; 84484; 85025; 85610-TC; 85730-TC; 87040; 93005; 94640; 94760; 96365; 96368; 96375; 97116-GP; 97163-GP; 99285; G0378; J0456; J0696; J1644; J1940; J7050; J7060; J7613

== ENCOUNTER 2022-11-20 15:01 | Inpatient (IN) | payer OTHER, MEDICARE ==
[~2022-11-20] VITALS: Ht 175.3 cm; Wt 78.9 kg
[~2022-11-20 15:01] MED LIST changes: +AZIT500V2 IV; +CARV25TA55 PO; +DILT30TA35 PO; +FURO-149 PO; -HYDR25TA4 PO; +ISOS30TA85 PO; -LISI40TA13 PO; +ROCPM1 IV; +SACU1TAB PO
[2022-11-20 15:15] VITALS: BP_SYST 102
[2022-11-20] MEDS ORDERED: SENN8.6T19 PO (15:51)
[2022-11-20] MEDS ORDERED: INSU100V42 (15:51)
[2022-11-20] MEDS ORDERED: DOCU-144 PO (15:51)
[2022-11-20 16:02] LABS: BASOPHILS # (AUTO) 0.1 K/uL (0.0-0.2); BASOPHILS % (AUTO) 0.7 % (0.0-2.0); EOSINOPHILS # (AUTO) 0.1 K/uL (0.0-0.4); EOSINOPHILS % (AUTO) 1.1 % (0.0-4.0); HEMOGLOBIN 8.3 g/dL (14.0-18.0); LYMPHOCYTES # (AUTO) 0.5 K/uL (1.0-5.5); LYMPHOCYTES % (AUTO) 7.3 % (20.5-51.5); MEAN CORPUSCULAR HEMOGLOBIN 29 pg (27-31); MEAN CORPUSCULAR HGB CONC 33 % (32-36); MEAN CORPUSCULAR VOLUME 88 fL (79.0-98.0); MONOCYTES # (AUTO) 0.5 K/uL (0.0-1.0); MONOCYTES % (AUTO) 6.8 % (1.7-9.3); NEUTROPHILS # (AUTO) 5.9 K/uL (1.8-7.7); NEUTROPHILS % (AUTO) 84.1 % (40.0-70.0); PLATELET COUNT (AUTO) 340 K/uL (130-430); RED BLOOD CELL COUNT(AUTO) 2.85 MIL/uL (4.2-6.2); RED CELL DISTRIBUTION WIDTH 14.4 % (9.0-15.0)
[2022-11-20 16:06] LABS: ANION GAP 9 (5-15); CALCIUM 8.2 mg/dL (8.4-11.0); CHLORIDE 109 mmol/L (98-107); GLUCOSE 119 mg/dL (70-99); UREA NITROGEN, BLOOD 60 mg/dL (8-21)
[2022-11-20 16:12] LABS: INR 1.2 (0.80-1.20); PROTHROMBIN TIME 11.6 SECS (9.5-12.5)
[2022-11-20 16:13] LABS: ALANINE AMINOTRANSFERASE 37 U/L (12-78); ALBUMIN 2.3 g/dL (3.4-4.8); ASPARTATE AMINOTRANSFERASE 21 U/L (10-37); TOTAL BILIRUBIN 0.3 mg/dL (0.0-1.0)
[2022-11-20] MEDS ORDERED: NALOXONE HCL 0.4 MG/ML AMP (NARCAN) IVP PRN ×2 (18:30)
[2022-11-20] MEDS ORDERED: ZOLPIDEM TARTRATE 5 MG TABLET PO PRN (18:30)
[2022-11-20] MEDS ORDERED: LORazepam 2 MG/ML VIAL IVP PRN (18:30)
[2022-11-20] MEDS ORDERED: POTASSIUM CHLORIDE 20 MEQ TAB.PRT.SR PO PRN (18:30)
[2022-11-20] MEDS ORDERED: MUPIROCIN 2% TOPICAL OINTMENT 22 GM NS PRN (18:30)
[2022-11-20] MEDS ORDERED: MAGNESIUM SULFATE 50 ML IV PRN (18:30)
[2022-11-20] MEDS ORDERED: DEXTROSE 50% JECT 50 ML DISP.SYRIN IVP PRN (18:30)
[2022-11-20] MEDS ORDERED: ACETAMINOPHEN 325 MG TABLET PO PRN ×2 (18:30→18:45)
[2022-11-20] MEDS ORDERED: DOCUSATE SODIUM 100 MG CAPSULE PO PRN (18:30)
[2022-11-20] MEDS ORDERED: MORPHINE 2 MG/ML INJ. SYRINGE IVP PRN ×2 (18:30)
[2022-11-20] MEDS ORDERED: ONDANSETRON HCL 4 MG/2 ML VIAL IVP PRN (18:30)
[2022-11-20] MEDS: DILTIAZEM HCL 30 MG TABLET PO SCH (22:15)
[2022-11-20] MEDS: CARVEDILOL 25 MG TABLET (COREG) PO SCH (22:15)
[2022-11-20] MEDS: HEPARIN SODIUM,PORCINE 5,000 UNITS/ML VIAL SUBCUT SCH (22:19)
[2022-11-20] MEDS: INSULIN LISPRO SLIDING SCALE 100 UNITS/ML, 3 ML VIAL (humaLOG) SUBCUT PRN (22:20)
[2022-11-21] VITALS (11 sets, daily range): BP systolic 72–137
[2022-11-21] MEDS ORDERED: PIPERACILLIN/TAZO 2.25G/DEX-IS 50 ML IV SCH ×2
[2022-11-21 05:21] LABS: BASOPHILS % (AUTO) 0.5 % (0.0-2.0); EOSINOPHILS # (AUTO) 0.1 K/uL (0.0-0.4); EOSINOPHILS % (AUTO) 1.1 % (0.0-4.0); HEMOGLOBIN 8.2 g/dL (14.0-18.0); LYMPHOCYTES # (AUTO) 0.4 K/uL (1.0-5.5); LYMPHOCYTES % (AUTO) 7.6 % (20.5-51.5); MEAN CORPUSCULAR HEMOGLOBIN 29 pg (27-31); MEAN CORPUSCULAR HGB CONC 33 % (32-36); MEAN CORPUSCULAR VOLUME 88 fL (79.0-98.0); MONOCYTES # (AUTO) 0.4 K/uL (0.0-1.0); MONOCYTES % (AUTO) 6.9 % (1.7-9.3); NEUTROPHILS # (AUTO) 4.8 K/uL (1.8-7.7); NEUTROPHILS % (AUTO) 83.9 % (40.0-70.0); PLATELET COUNT (AUTO) 312 K/uL (130-430); RED BLOOD CELL COUNT(AUTO) 2.85 MIL/uL (4.2-6.2); RED CELL DISTRIBUTION WIDTH 14.4 % (9.0-15.0); WHITE BLOOD COUNT (AUTO) 5.7 K/uL (4.8-10.8)
[2022-11-21 05:45] LABS: ANION GAP 9 (5-15); CALCIUM 8.2 mg/dL (8.4-11.0); CHLORIDE 109 mmol/L (98-107); CREATININE 3.35 mg/dL (0.55-1.30); GLUCOSE 128 mg/dL (70-99); UREA NITROGEN, BLOOD 63 mg/dL (8-21)
[2022-11-21] MEDS ORDERED: IPRATROPIUM/ALBUTEROL SULFATE 3 ML AMPUL.NEB (DUONEB) INH PRN (08:45)
[2022-11-21] MEDS ORDERED: FUROSEMIDE 40 MG TABLET PO SCH (09:00)
[2022-11-21] MEDS ORDERED: ISOSORBIDE MONONITRATE 30 MG TAB.ER.24H PO SCH (09:00)
[2022-11-21] MEDS ORDERED: amLODIPine BESYLATE 10 MG TABLET PO SCH (09:00)
[2022-11-21] MEDS ORDERED: PHENAZOPYRIDINE HCL 100 MG TABLET PO ONE (09:15)
[2022-11-21] MEDS: CARVEDILOL 25 MG TABLET (COREG) PO SCH (09:20)
[2022-11-21] MEDS: DILTIAZEM HCL 30 MG TABLET PO SCH (09:23)
[2022-11-21] MEDS: ATORVASTATIN 20 MG TABLET PO SCH (09:24)
[2022-11-21] MEDS: HEPARIN SODIUM,PORCINE 5,000 UNITS/ML VIAL SUBCUT SCH ×2 (09:32→20:54)
[2022-11-21] MEDS: INSULIN LISPRO SLIDING SCALE 100 UNITS/ML, 3 ML VIAL (humaLOG) SUBCUT PRN ×2 (12:13→20:57)
[2022-11-21] MEDS: PHENAZOPYRIDINE HCL 100 MG TABLET PO SCH ×2 (12:21→18:18)
[2022-11-21] MEDS: metroNIDAZOLE 250 mg/NS 50 ML IV SCH ×2 (13:57→22:24)
[2022-11-21] MEDS ORDERED: COMMUNICATION ORDER XX ONE (14:30)
[2022-11-21] MEDS: NACL 0.9% 1,000 ML IV SCH ×2 (14:47→23:56)
[2022-11-21] MEDS: LEVOFLOXACIN 250 MG/D5W 50 ML IV SCH (20:54)
[2022-11-22] VITALS: BP_SYST 134
[2022-11-22] MEDS: metroNIDAZOLE 250 mg/NS 50 ML IV SCH ×3 (06:02→22:22)
[2022-11-22 07:16] LABS: BASOPHILS % (AUTO) 0.8 % (0.0-2.0); EOSINOPHILS # (AUTO) 0.1 K/uL (0.0-0.4); EOSINOPHILS % (AUTO) 0.9 % (0.0-4.0); HEMATOCRIT 26.8 % (36-54); HEMOGLOBIN 8.9 g/dL (14.0-18.0); LYMPHOCYTES # (AUTO) 0.4 K/uL (1.0-5.5); LYMPHOCYTES % (AUTO) 6.6 % (20.5-51.5); MEAN CORPUSCULAR HEMOGLOBIN 29 pg (27-31); MEAN CORPUSCULAR HGB CONC 33 % (32-36); MEAN CORPUSCULAR VOLUME 88 fL (79.0-98.0); MONOCYTES # (AUTO) 0.5 K/uL (0.0-1.0); MONOCYTES % (AUTO) 7.5 % (1.7-9.3); NEUTROPHILS # (AUTO) 5.4 K/uL (1.8-7.7); NEUTROPHILS % (AUTO) 84.2 % (40.0-70.0); PLATELET COUNT (AUTO) 327 K/uL (130-430); RED BLOOD CELL COUNT(AUTO) 3.06 MIL/uL (4.2-6.2); RED CELL DISTRIBUTION WIDTH 14.2 % (9.0-15.0); WHITE BLOOD COUNT (AUTO) 6.5 K/uL (4.8-10.8)
[2022-11-22 07:40] VITALS: BP_SYST 135
[2022-11-22 07:43] LABS: ANION GAP 8 (5-15); CALCIUM 8.3 mg/dL (8.4-11.0); CHLORIDE 109 mmol/L (98-107); CREATININE 3.42 mg/dL (0.55-1.30); GLUCOSE 121 mg/dL (70-99); UREA NITROGEN, BLOOD 61 mg/dL (8-21)
[2022-11-22] MEDS: PHENAZOPYRIDINE HCL 100 MG TABLET PO SCH ×3 (08:05→18:14)
[2022-11-22] MEDS: ATORVASTATIN 20 MG TABLET PO SCH (08:06)
[2022-11-22] MEDS: HEPARIN SODIUM,PORCINE 5,000 UNITS/ML VIAL SUBCUT SCH ×2 (08:57→20:44)
[2022-11-22 11:25] VITALS: BP_SYST 108
[2022-11-22 15:21] VITALS: BP_SYST 91
[2022-11-22 20:00] VITALS: BP_SYST 124
[2022-11-22] MEDS: LEVOFLOXACIN 250 MG/D5W 50 ML IV SCH (20:43)
[2022-11-22] MEDS: INSULIN LISPRO SLIDING SCALE 100 UNITS/ML, 3 ML VIAL (humaLOG) SUBCUT PRN (21:01)
[2022-11-23 00:03] VITALS: BP_SYST 122
[2022-11-23] MEDS: metroNIDAZOLE 250 mg/NS 50 ML IV SCH (06:09)
[2022-11-23 08:31] LABS: BASOPHILS % (AUTO) 0.3 % (0.0-2.0); EOSINOPHILS # (AUTO) 0.1 K/uL (0.0-0.4); EOSINOPHILS % (AUTO) 1.2 % (0.0-4.0); HEMATOCRIT 27.3 % (36-54); LYMPHOCYTES # (AUTO) 0.5 K/uL (1.0-5.5); LYMPHOCYTES % (AUTO) 7.5 % (20.5-51.5); MEAN CORPUSCULAR HEMOGLOBIN 29 pg (27-31); MEAN CORPUSCULAR HGB CONC 33 % (32-36); MEAN CORPUSCULAR VOLUME 88 fL (79.0-98.0); MONOCYTES # (AUTO) 0.5 K/uL (0.0-1.0); MONOCYTES % (AUTO) 7.9 % (1.7-9.3); NEUTROPHILS # (AUTO) 5.6 K/uL (1.8-7.7); NEUTROPHILS % (AUTO) 83.1 % (40.0-70.0); PLATELET COUNT (AUTO) 309 K/uL (130-430); RED BLOOD CELL COUNT(AUTO) 3.11 MIL/uL (4.2-6.2); RED CELL DISTRIBUTION WIDTH 14.8 % (9.0-15.0); WHITE BLOOD COUNT (AUTO) 6.7 K/uL (4.8-10.8)
[2022-11-23] MEDS: PHENAZOPYRIDINE HCL 100 MG TABLET PO SCH (08:31)
[2022-11-23] MEDS: ATORVASTATIN 20 MG TABLET PO SCH (08:31)
[2022-11-23] MEDS: HEPARIN SODIUM,PORCINE 5,000 UNITS/ML VIAL SUBCUT SCH (08:34)
[2022-11-23 08:49] LABS: ANION GAP 10 (5-15); CALCIUM 8.2 mg/dL (8.4-11.0); CHLORIDE 108 mmol/L (98-107); CREATININE 3.21 mg/dL (0.55-1.30); GLUCOSE 146 mg/dL (70-99); UREA NITROGEN, BLOOD 56 mg/dL (8-21)
[2022-11-23] MEDS ORDERED: SACUBITRIL/VALSARTAN 24 MG-26 MG 1 TABLET PO ONE (11:50)
[2022-11-23 12:00] VITALS: BP_SYST 118
[2022-11-23 12:19] VITALS: BP_SYST 122
[2022-11-23] MEDS ORDERED: SACUBITRIL/VALSARTAN 24 MG-26 MG 1 TABLET PO SCH (21:00)
== END 2022-11-23 13:43 | disposition home health service (06) | DRG 177 ==
LOC: SED 15:01 → STU 17:46
PROVIDERS: ADMIT General Practice; ATTEND General Practice
PROC: 0W993ZZ Drainage of Right Pleural Cavity, Percutaneous Approach (ICD-10-PCS; principal; 2022-11-22)
DX: J69.0 Pneumonitis due to inhalation of food and vomit (principal); I50.43 Acute on chronic combined systolic (congestive) and diastolic (congestive) heart failure; N17.0 Acute kidney failure with tubular necrosis; J96.01 Acute respiratory failure with hypoxia; I13.0 Hypertensive heart and chronic kidney disease with heart failure and stage 1 through stage 4 chronic kidney disease, or unspecified chronic kidney disease; E44.0 Moderate protein-calorie malnutrition; I42.9 Cardiomyopathy, unspecified; J93.83 Other pneumothorax; J90 Pleural effusion, not elsewhere classified; Z20.822 Contact with and (suspected) exposure to COVID-19; E83.41 Hypermagnesemia; D63.8 Anemia in other chronic diseases classified elsewhere; E78.5 Hyperlipidemia, unspecified; I25.10 Atherosclerotic heart disease of native coronary artery without angina pectoris; N18.9 Chronic kidney disease, unspecified; E11.22 Type 2 diabetes mellitus with diabetic chronic kidney disease; Z88.0 Allergy status to penicillin; Z79.899 Other long term (current) drug therapy; Z79.4 Long term (current) use of insulin; I25.2 Old myocardial infarction
CPT/HCPCS: 32555; 36415; 71045; 76604; 80048; 80053; 83037; 83735; 83880; 84484; 85025; 85610-TC; 85730-TC; 93005; 94760; 97110-GP; 97116-GP; 97530-GP; 99285; G0378; J1644; J1956; J2543; J3490

== ENCOUNTER 2022-11-26 19:15 | Inpatient (IN) | payer OTHER, MEDICARE ==
[~2022-11-26] VITALS: Ht 175.3 cm; Wt 74.4 kg
[~2022-11-26 19:15] MED LIST changes: -AMLO10TA88 PO; -AZIT500V2 IV; +DOCU-144 PO; +INSU100V42; -ROCPM1 IV; +SENN8.6T19 PO
[2022-11-26 19:46] VITALS: BP_SYST 115
--- NOTE | 2022-11-26 19:52 | NUR ---
pt is here because the facility wanted to fiollow up with for his possible worsening penumothorax. pt is using 6L nasal canual at his facility.
--- NOTE | 2022-11-26 19:52 | NUR ---
Patient triaged and placed in waiting room. VSS and patient appears in no acute distress at this time. Accompanied by self, awaiting available bed, and MD notified of need for MSE.
[2022-11-26 20:29] LABS: BASOPHILS % (AUTO) 0.5 % (0.0-2.0); EOSINOPHILS # (AUTO) 0.1 K/uL (0.0-0.4); EOSINOPHILS % (AUTO) 2.1 % (0.0-4.0); HEMATOCRIT 26.8 % (36-54); LYMPHOCYTES # (AUTO) 0.4 K/uL (1.0-5.5); MEAN CORPUSCULAR HEMOGLOBIN 29 pg (27-31); MEAN CORPUSCULAR HGB CONC 33 % (32-36); MEAN CORPUSCULAR VOLUME 86 fL (79.0-98.0); MONOCYTES # (AUTO) 0.5 K/uL (0.0-1.0); NEUTROPHILS # (AUTO) 5.5 K/uL (1.8-7.7); NEUTROPHILS % (AUTO) 84.4 % (40.0-70.0); PLATELET COUNT (AUTO) 305 K/uL (130-430); RED BLOOD CELL COUNT(AUTO) 3.11 MIL/uL (4.2-6.2); RED CELL DISTRIBUTION WIDTH 14.7 % (9.0-15.0); WHITE BLOOD COUNT (AUTO) 6.5 K/uL (4.8-10.8)
--- NOTE | 2022-11-26 20:29 | NUR ---
COVID AND FLU SAMPLE COLLECTED AND SENT TO LAB
[2022-11-26 20:35] LABS: ANION GAP 9 (5-15); CALCIUM 8.5 mg/dL (8.4-11.0); CHLORIDE 109 mmol/L (98-107); CREATININE 3.21 mg/dL (0.55-1.30); GLUCOSE 175 mg/dL (70-99); UREA NITROGEN, BLOOD 62 mg/dL (8-21)
[2022-11-26 20:38] LABS: INR 1.1 (0.80-1.20); PROTHROMBIN TIME 11.8 SECS (9.5-12.5)
[2022-11-26 20:43] LABS: ALANINE AMINOTRANSFERASE 23 U/L (12-78); ALBUMIN 2.4 g/dL (3.4-4.8); ASPARTATE AMINOTRANSFERASE 14 U/L (10-37); TOTAL BILIRUBIN 0.3 mg/dL (0.0-1.0)
--- NOTE | 2022-11-26 21:48 | NUR ---
non rebreather 15L is placed instead of nasal canula. pt is tolerated well
[2022-11-26] MEDS ORDERED: HYDROcodone/ACETAMIN 5-325 MG TAB (NORCO/ VICODIN) PO PRN (22:00)
[2022-11-26] MEDS ORDERED: ACETAMINOPHEN 500 MG TABLET PO PRN (22:00)
[2022-11-26] MEDS ORDERED: MELATONIN 5 MG TABLET PO PRN (22:15)
[2022-11-26] MEDS ORDERED: FUROSEMIDE 40 MG/4 ML VIAL IVP ONE (23:00)
[2022-11-26] MEDS ORDERED: metroNIDAZOLE 500 mg/NS 100 ML IV ONE (23:00)
[2022-11-26 23:53] LABS: BILIRUBIN,URINE NEGATIVE (NEGATIVE); BLOOD, URINE NEGATIVE (NEGATIVE); COLOR,URINE YELLOW (YELLOW); GLUCOSE,URINE NEGATIVE (NEGATIVE); KETONES,URINE NEGATIVE (NEGATIVE); LEUKOCYTE ESTERASE ,URINE NEGATIVE (NEGATIVE); NITRITE, URINE POSITIVE (NEGATIVE); PH,URINE 5.5 (5.0-8.0); PROTEIN URINE 1+ (NEGATIVE); UROBILINOGEN,URINE 0.2 (0.2-1.0)
[2022-11-27] VITALS (20 sets, daily range): BP systolic 90–150
--- NOTE | 2022-11-27 | NUR ---
blood sugar 182
[2022-11-27 00:21] LABS: CLARITY/URINE SLIGHTLY CLOUDY (CLEAR)
[2022-11-27 00:26] LABS: BACTERIA,URINE FEW /HPF (None Seen); RBC,URINE 0-3 /HPF (0-3); WBC,URINE 0-3 /HPF (0-3); YEAST,URINE Many /HPF (None Seen)
[2022-11-27] MEDS ORDERED: MORPHINE 2 MG/ML INJ. SYRINGE IVP PRN (00:45)
[2022-11-27] MEDS ORDERED: NALOXONE HCL 0.4 MG/ML AMP (NARCAN) IVP PRN (00:45)
[2022-11-27] MEDS ORDERED: NACL 0.9% 1,000 ML IV SCH (00:45)
[2022-11-27] MEDS ORDERED: DEXTROSE 50% JECT 50 ML DISP.SYRIN IVP PRN (00:45)
[2022-11-27] MEDS ORDERED: ONDANSETRON HCL 4 MG/2 ML VIAL IVP PRN (00:45)
[2022-11-27] MEDS ORDERED: MAGNESIUM SULFATE 50 ML IV PRN (00:45)
[2022-11-27] MEDS ORDERED: POTASSIUM CHLORIDE 40 MEQ, LIDOCAINE JECT 2% PF 100 MG 50 MG in NS 250 ML IV PRN (00:45)
[2022-11-27] MEDS ORDERED: D5W 1,000 ML IV PRN (00:45)
[2022-11-27] MEDS ORDERED: LORazepam 2 MG/ML VIAL IVP PRN (00:45)
[2022-11-27] MEDS ORDERED: MORPHINE 4 MG INJ. 4 MG/ML VIAL IVP PRN (00:45)
[2022-11-27] MEDS ORDERED: GLUCOSE (DEXTROSE) ORAL GEL -Adults PO PRN (00:45)
[2022-11-27] MEDS: FLUCONAZOLE 100 mg/ NS 50 ML IV SCH (01:00)
--- NOTE | 2022-11-27 02:00 | NUR ---
pt care was perfomed and had bowel movement
[2022-11-27 02:46] LABS: FREE T4 (FREE THYROXINE) 1.2 ng/dL (0.6-1.6); THYROID STIMULATING HORMONE 1.92 uIu/mL (0.34-4.82)
[2022-11-27] MEDS ORDERED: FUROSEMIDE 100 MG/10 ML VIAL ONE (03:03)
[2022-11-27] MEDS ORDERED: FLUCONAZOLE 200 mg/ NS 100 ML IV ONE (03:05)
[2022-11-27] MEDS ORDERED: metroNIDAZOLE 500 mg/NS 100 ML IV ONE (03:09)
--- NOTE | 2022-11-27 05:13 | NUR ---
Patient will be admitted to care of stacy. Admitted to icu unit. Will go to room 7. Belongings list completed. Complete and up to date summary report printed. SBAR report to be given at bedside with opportunity for questions.
[2022-11-27] MEDS: DOCUSATE SODIUM 100 MG CAPSULE PO SCH ×2 (09:00→09:47)
[2022-11-27] MEDS ORDERED: FUROSEMIDE 40 MG TABLET PO SCH (09:00)
[2022-11-27] MEDS: CARVEDILOL 25 MG TABLET (COREG) PO SCH ×2 (09:46→20:26)
[2022-11-27] MEDS: FUROSEMIDE 40 MG/4 ML VIAL IVP SCH ×2 (09:46→20:27)
[2022-11-27] MEDS: ATORVASTATIN 20 MG TABLET PO SCH (09:46)
[2022-11-27] MEDS: ENOXAPARIN SODIUM 30 MG/0.3 ML SYRINGE SUBCUT SCH (09:47)
[2022-11-27] MEDS: DILTIAZEM HCL 30 MG TABLET PO SCH ×2 (09:47→20:26)
[2022-11-27] MEDS: ISOSORBIDE MONONITRATE 30 MG TAB.ER.24H PO SCH (09:47)
[2022-11-27] MEDS: SACUBITRIL/VALSARTAN 24 MG-26 MG 1 TABLET PO SCH ×2 (09:48→20:24)
[2022-11-27 10:14] LABS: ANION GAP 7 (5-15); CALCIUM 8.2 mg/dL (8.4-11.0); CHLORIDE 111 mmol/L (98-107); CREATININE 3.18 mg/dL (0.55-1.30); GLUCOSE 154 mg/dL (70-99); UREA NITROGEN, BLOOD 62 mg/dL (8-21)
[2022-11-27 10:19] LABS: ALBUMIN 2.3 g/dL (3.4-4.8); TOTAL BILIRUBIN 0.4 mg/dL (0.0-1.0)
[2022-11-27 10:33] LABS: ALANINE AMINOTRANSFERASE 19 U/L (12-78); ASPARTATE AMINOTRANSFERASE 6 U/L (10-37)
[2022-11-27 17:43] LABS: BARBITURATE, URINE NEGATIVE (NEG <=200); BENZODIAZEPINE, URINE NEGATIVE (NEG <=150); CANNABINOID, URINE NEGATIVE (NEG <=50); COCAINE, URINE NEGATIVE (NEG <=150); METHAMPHETAMINES SCREEN,URINE NEGATIVE (NEG <=500); OPIATE, URINE NEGATIVE (NEG <=100); PHENCYCLIDINE SCREEN,URINE NEGATIVE (NEG <=25); UR TRICYCLIC ANTIDEPRESSANTS NEGATIVE (NEG <=300); URINE AMPHETAMINE NEGATIVE (NEG <=500); URINE METHADONE NEGATIVE (NEG <=200); URINE OXYCODONE SCREEN NEGATIVE (NEG <=100); URINE PROPOXYPHENE SCREEN NEGATIVE (NEG <=300)
--- NOTE | 2022-11-27 19:00 | NUR ---
PATIENT IS RESTING IN BED FAMILY AT BEDSIDE, PATIENT AWAKE AND TALKING TO FAMILY. NO S/SX DISTRESS. REPORT GIVEN TO NIGHT NURSE. ENDORSEMENTS GIVEN TO NIGHT NURSE.
--- NOTE | 2022-11-27 19:30 | NUR ---
PM ASSESSMENT REPORT RECEIVED FROM AM RN. PT RECEIVED IN BED RESPONDING TO VERBAL STIMULATION. VSS, NO S/S OF ACUTE DISTRESS NOTED. PT AFIB ON MONITOR. 100% NRB IN PLACE. RAC 18G TO SL, PATENT AND INTACT. PT DENIES ANY PAIN OR DISCOMFORT AT THIS TIME. HOB ELEVATED, BED LOCKED IN LOWEST POSITION, CALL LIGHT IN REACH. WILL CONTINUE TO MONITOR PT.
[2022-11-27] MEDS: SENNOSIDES 8.6 MG TABLET PO SCH (20:26)
--- NOTE | 2022-11-27 23:25 | NUR ---
O2 CHANGES PT SATURATING 99-100% ON 100% NRB, PT PLACED ON 4L NC BY RT AT THIS TIME. PT SATURATING 96% ON NC. WILL CONTINUE TO MONITOR PT.
[2022-11-28] VITALS (24 sets, daily range): BP systolic 79–139
[2022-11-28] MEDS: FLUCONAZOLE 100 mg/ NS 50 ML IV SCH (00:20)
[2022-11-28 05:27] LABS: BASOPHILS % (AUTO) 0.6 % (0.0-2.0); EOSINOPHILS # (AUTO) 0.2 K/uL (0.0-0.4); EOSINOPHILS % (AUTO) 3.8 % (0.0-4.0); HEMATOCRIT 27.1 % (36-54); LYMPHOCYTES # (AUTO) 0.6 K/uL (1.0-5.5); LYMPHOCYTES % (AUTO) 9.9 % (20.5-51.5); MEAN CORPUSCULAR HEMOGLOBIN 29 pg (27-31); MEAN CORPUSCULAR HGB CONC 33 % (32-36); MEAN CORPUSCULAR VOLUME 86 fL (79.0-98.0); MONOCYTES # (AUTO) 0.5 K/uL (0.0-1.0); MONOCYTES % (AUTO) 8.9 % (1.7-9.3); NEUTROPHILS # (AUTO) 4.3 K/uL (1.8-7.7); NEUTROPHILS % (AUTO) 76.8 % (40.0-70.0); PLATELET COUNT (AUTO) 292 K/uL (130-430); RED BLOOD CELL COUNT(AUTO) 3.15 MIL/uL (4.2-6.2); RED CELL DISTRIBUTION WIDTH 14.3 % (9.0-15.0); WHITE BLOOD COUNT (AUTO) 5.6 K/uL (4.8-10.8)
[2022-11-28 05:49] LABS: ANION GAP 6 (5-15); CALCIUM 8.1 mg/dL (8.4-11.0); CHLORIDE 112 mmol/L (98-107); CREATININE 3.22 mg/dL (0.55-1.30); GLUCOSE 132 mg/dL (70-99); UREA NITROGEN, BLOOD 61 mg/dL (8-21)
[2022-11-28 05:55] LABS: ALANINE AMINOTRANSFERASE 17 U/L (12-78); ASPARTATE AMINOTRANSFERASE 10 U/L (10-37); PHOSPHORUS 5.5 mg/dL (2.7-4.5); TOTAL BILIRUBIN 0.4 mg/dL (0.0-1.0)
[2022-11-28] MEDS: SACUBITRIL/VALSARTAN 24 MG-26 MG 1 TABLET PO SCH ×2 (08:44→20:24)
[2022-11-28] MEDS: DOCUSATE SODIUM 100 MG CAPSULE PO SCH ×2 (08:44→20:24)
[2022-11-28] MEDS: DILTIAZEM HCL 30 MG TABLET PO SCH ×2 (08:44→20:23)
[2022-11-28] MEDS: ENOXAPARIN SODIUM 30 MG/0.3 ML SYRINGE SUBCUT SCH (08:45)
[2022-11-28] MEDS: CARVEDILOL 25 MG TABLET (COREG) PO SCH ×2 (08:45→20:24)
[2022-11-28] MEDS: ISOSORBIDE MONONITRATE 30 MG TAB.ER.24H PO SCH (08:45)
[2022-11-28] MEDS: ATORVASTATIN 20 MG TABLET PO SCH (08:45)
[2022-11-28] MEDS: FUROSEMIDE 40 MG/4 ML VIAL IVP SCH ×2 (08:46→20:23)
[2022-11-28] MEDS ORDERED: SODIUM CL 3% FOR INHALATION 15 ML VIAL.NEB INH ONE ×2 (10:00→10:09)
[2022-11-28] MEDS ORDERED: NS 500 ML IV ONE (10:45)
--- NOTE | 2022-11-28 11:07 | NUR ---
Dietitian Recommendations * Continue renal standard * Consider adding CCHO restriction if PO intakes improve and BG remain elevated * Ordered: Simin QUIGLEY GS, MPH, RD Please refer to RD Assessment for further details. Thanks! Addendum: 11/28/22 at [address] Amended: Links added.
[2022-11-28] MEDS ORDERED: ALBUMIN HUMAN 25% 100 ML IV ONE (12:00)
--- NOTE | 2022-11-28 12:00 | NUR ---
patient hypotensive but not symptomatic. notified dr batista, ordered albumin 100ml 25% IV once.
[2022-11-28] MEDS: INSULIN REGULAR, HUMAN 100 UNITS/ML, 3 ML VIAL (humuLIN R) SUBCUT PRN (12:18)
--- NOTE | 2022-11-28 13:49 | NUR ---
PHYSICAL THERAPY CO-SIGN The Physical Therapy Progress Notes documented by Palm Gatherer have been reviewed. Reviewed/Co-Signed by: Umer Wright Documentation Done by:ARISTIDES PRECIADO Addendum: 11/28/22 at 1350 by Umer Wright PT Amended: Links added.
--- NOTE | 2022-11-28 19:15 | NUR ---
change of shift.pt.presents quiescentg affect;calm,resting.note h/r,b/p status.pt.presents iv access location rt.antecubital. intact;patent.pt.utilizing the urinal w/in access of the pt.no c/o pain,nausea.pt.receiving o2 therapy via nasal cannulae.rate: 3l/min 02-sat%=95%.pop light w/in access of the pt.
--- NOTE | 2022-11-28 20:00 | NUR ---
pt.assessed.v/s assessed values wnl.note h/r,b/p status.iv access intact;patent.pt.assisted w the urinal:note urine volume. pt.apprised snacks/beverages are available w/in the shift.no requests posited@this hour.pt.assessed for cleanliness.pt.repositioned. call light placed w/in access of the pt. Addendum: 11/29/22 at 0144 by José Luis Singer RN 02-sat%=95%.
[2022-11-28] MEDS: SENNOSIDES 8.6 MG TABLET PO SCH (20:25)
--- NOTE | 2022-11-28 21:00 | NUR ---
2100p medications administered.pt.capable to ingest the po medications w/out difficulty.no c/o pain,nausea. no requests posited@thios hour.call light placed w/in access of the pt.
--- NOTE | 2022-11-28 22:00 | NUR ---
pt.assessed.v/s assessed values wnl.note h/r,b/p status.02-sat%=95%.no c/o pain,nausea.pt.assisted w urinal. note urine volume.pt.assessed for cleanliness.pt.repositioned.call light placed w/in access of the pt.
[2022-11-29] VITALS (21 sets, daily range): BP systolic 101–141
--- NOTE | 2022-11-29 | NUR ---
pt.assessed.v/s assessed value note h/r,b/p status values wnl.no c/o pain,nausea.no requests posited@this hour. pt.assisted w the urinal.note urine volume.pt.assessed for cleanliness.pt.repositioned.call light placed w/in access of the pt. Addendum: 11/29/22 at 0145 by José Luis Singer RN 02-sat%=95%.
[2022-11-29] MEDS: FLUCONAZOLE 100 mg/ NS 50 ML IV SCH (00:19)
--- NOTE | 2022-11-29 02:00 | NUR ---
pt.assessed.v/s assessed note h/r,b/p status wnl.02-sat%=96%.no c/o pain,nausea.iv access intact;patent.pt.assessed for cleanliness.pt.repositioned.call light placed w/in access of the pt.
--- NOTE | 2022-11-29 04:00 | NUR ---
pt.assessed.v/s assessed values wnl.note b/p status.02-sat%=95%.no c/o pain,nausea.pt.assisted w the uninal.note urine volume.iv access intact.pt.assessed for cleanliness.pt.repositioned.call light placed w/in access of the pt.pt.weighed 2/t chf hx.
--- NOTE | 2022-11-29 06:09 | NUR ---
pt.assessed.v/s assessed values wnl.note h/r,b/p status.02-sat%=94%.no c/o pain,nausea.no requests posited@this hour. pt.assessed for cleanliness.pt.cleaned/repositioned.call light placed w/in access of the pt.
[2022-11-29 06:31] LABS: BASOPHILS % (AUTO) 0.4 % (0.0-2.0); EOSINOPHILS # (AUTO) 0.3 K/uL (0.0-0.4); EOSINOPHILS % (AUTO) 4.9 % (0.0-4.0); HEMATOCRIT 27.7 % (36-54); HEMOGLOBIN 9.2 g/dL (14.0-18.0); LYMPHOCYTES # (AUTO) 0.6 K/uL (1.0-5.5); LYMPHOCYTES % (AUTO) 9.3 % (20.5-51.5); MEAN CORPUSCULAR HEMOGLOBIN 28 pg (27-31); MEAN CORPUSCULAR HGB CONC 33 % (32-36); MEAN CORPUSCULAR VOLUME 86 fL (79.0-98.0); MONOCYTES # (AUTO) 0.5 K/uL (0.0-1.0); MONOCYTES % (AUTO) 8.1 % (1.7-9.3); NEUTROPHILS # (AUTO) 4.6 K/uL (1.8-7.7); NEUTROPHILS % (AUTO) 77.3 % (40.0-70.0); PLATELET COUNT (AUTO) 272 K/uL (130-430); RED BLOOD CELL COUNT(AUTO) 3.23 MIL/uL (4.2-6.2); RED CELL DISTRIBUTION WIDTH 14.2 % (9.0-15.0)
[2022-11-29 07:08] LABS: ALANINE AMINOTRANSFERASE 13 U/L (12-78); ALBUMIN 2.3 g/dL (3.4-4.8); ANION GAP 9 (5-15); ASPARTATE AMINOTRANSFERASE 9 U/L (10-37); CALCIUM 8.1 mg/dL (8.4-11.0); CHLORIDE 112 mmol/L (98-107); GLUCOSE 136 mg/dL (70-99); PHOSPHORUS 4.8 mg/dL (2.7-4.5); TOTAL BILIRUBIN 0.4 mg/dL (0.0-1.0); UREA NITROGEN, BLOOD 63 mg/dL (8-21)
[2022-11-29] MEDS: FUROSEMIDE 40 MG/4 ML VIAL IVP SCH (08:27)
[2022-11-29] MEDS: ATORVASTATIN 20 MG TABLET PO SCH (08:27)
[2022-11-29] MEDS: CARVEDILOL 25 MG TABLET (COREG) PO SCH ×3 (08:28→20:43)
[2022-11-29] MEDS: DILTIAZEM HCL 30 MG TABLET PO SCH ×3 (08:28→20:42)
[2022-11-29] MEDS: ENOXAPARIN SODIUM 30 MG/0.3 ML SYRINGE SUBCUT SCH (08:29)
[2022-11-29] MEDS: SACUBITRIL/VALSARTAN 24 MG-26 MG 1 TABLET PO SCH ×2 (08:29→21:23)
[2022-11-29] MEDS: DOCUSATE SODIUM 100 MG CAPSULE PO SCH ×2 (08:29→20:42)
[2022-11-29] MEDS: ISOSORBIDE MONONITRATE 30 MG TAB.ER.24H PO SCH (08:29)
[2022-11-29 09:40] LABS: INR 1.2 (0.80-1.20); PROTHROMBIN TIME 12.1 SECS (9.5-12.5)
--- NOTE | 2022-11-29 11:56 | NUR ---
PHYSICAL THERAPY CO-SIGN The Physical Therapy Progress Notes documented by Equipment Records Supervisor have been reviewed. Reviewed/Co-Signed by: Umer Wirght Documentation Done by:ARISTIDES PRECIADO Addendum: 11/29/22 at 1156 by Umer Wright PT Amended: Links added.
[2022-11-29] MEDS: INSULIN REGULAR, HUMAN 100 UNITS/ML, 3 ML VIAL (humuLIN R) SUBCUT PRN ×2 (12:51→17:53)
--- NOTE | 2022-11-29 17:10 | NUR ---
Nutrition F/U Anodize Machine Operator reviewed pts current EMR including diet hx, physician notes, nursing notes, pertinent labs/meds/procedures, care trends and care activity. Admitting Diagnosis Acute respiratory failure PMH: per H&P: 87yoM presents emergency room from [facility] for evaluation to rule out pneumothorax. Patient reports that he was discharged from the hospital 2 days ago where they did a thoracentesis and removed fluid from bilateral lungs. Patient reports that he felt better immediately afterwards. Patient reports that today he feels fine. Denies increasing shortness of breath, difficulty breathing, cough congestion fevers chills or chest pain or wheezing. PMHx: acute respiratory failure, pneumonia, chronic congestive heart failure, POLO, NSTEMI, anemia, type 2 diabetes with diabetic nephropathy, COPD, atrial fibrillation, cardiomyopathy, hydronephrosis, hypertension, kidney cyst, pleural effusion, hyperlipidemia Moderate R and small L pleural effusions (stable) 11/28 per MD Shankar: Pt and family wish to try to avoid HD. Subjective Information Anodize Machine Operator spoke w/ pt in the morning after ICU rounds and in the afternoon. Pt reported his appetite is doing OK. No nausea, vomiting, or constipation but pt did state that hes experiencing some mild diarrhea. Pt only eats 2 meals (B&D) at home and usually as a snack for L. Asked pt about Nepro BID that came w/ his meals, but pt cannot remember what he drank. Witnessed pt eating about 75% of his lunch tray. Unable to ask pt about renal nutrition education. Current Diet Order/Nutrition Support Renal Standard, Nepro BID x 1 day Education Provided Not Indicated Pertinent Medications Senna, Lipitor, Cardizem, SSI Pertinent Labs H/H 9.2L/27.7L (trending up), Na 146H (trending up), BUN 63H (trending up), Cre 3.30H (trending up), BG 136H (trending down), POC BG 204H, Phos 4.8H (trending down) 3.27: HgA1c 6.6H Height (Feet) 5 feet Height (Inches) 9.00 inches Weight (Pounds) 164 pounds (1# wt gain since 11/28) Patient Weight 74.417 kg Body Mass Index 24.2 kg/m2 %IBW 103 [place]/Adjusted Body Weight 160#/ 73 kg Recent Weight Change No per pt report Weight Status Appropriate Last BM Nov 29, 2022 Food Allergies None per pt report Usual Diet At Home Regular per pt report Skin Integrity Comment: Juventino: 18 Wounds: None noted Edema: 1+ pitting on bilat. generalized Current % PO Fair, avg 58% x 3 meals w/ max. assistance Estimated Energy Expenditure (kcals/day) 1759-7676 kcal (20-25 kcal/kg CBW d/t acute respiratory failure, critical illness) Estimated Protein Required (g/day) 59-104g (0.8-1.4 g/kg CBW d/t ARF and POLO) Estimated Fluid Required (l/day) Refer to MD (POLO) Problem/Etiology/Signs/Symptoms * Altered nutrition-related lab values R/T renal dysfunction AEB high BUN/Cre (*Ongoing) Expected Outcomes/Goals PO intake provides >85% estimated nutrient needs, nutrition-related labs trending WNL, continued skin integrity, BM q1-3 days Dietitian Recommendations * Continue Renal Standard, Nepro BID (ONS 840 kcals and 38 g PRO). * Consider adding CCHO restriction if PO intakes improve, and BG remain elevated Follow Up High Risk: F/U in 2-3days LP, MS, RD
--- NOTE | 2022-11-29 17:10 | NUR ---
Dietitian Recommendations * Continue Renal Standard, Nepro BID (ONS 840 kcals and 38 g PRO). * Consider adding CCHO restriction if PO intakes improve, and BG remain elevated LP, MS, RD Please refer to Nutrition F/U for details.
--- NOTE | 2022-11-29 18:26 | NUR ---
FLEXISEAL PLACED AND CONDOM CATHETER PLACED. EDUCATED ON PROCEDURE PRIOR TO PERFORMING TO PATIENT, VOICED UNDERSTANDING. PATIENT TOLERATED PLACEMENT WELL, BOTH DRAINING TO GRAVITY.
--- NOTE | 2022-11-29 19:30 | NUR ---
RECEIVED AAO X4, FOLLOWS COMMANDS WELL. BILATERAL LUNG SOUNDS ARE DIMINISHED. ON O2 AT 3LPM/NC, SATURATION WDL. NO SOB NOTED. PATIENT HAS D5W AT 3 ML/HR VIA RIGHT AC GA 18, PIV. JUST FINISHED HIS DINNER. ABDOMEN IS SOFT AND NON-DISTENDED. CONDOM CATH INTACT TO DRAINAGE AG, DRAINING DIONISIO COLOR URIN. RECTAL BAG PRESENT. AFEBRILE. PATIENTIIS FOR RIGHT THORACENTECIS TOMORROW. CONSENT WILL BE OBTAINED. NPO AFTER MIDNIGHT.
[2022-11-29] MEDS: FUROSEMIDE 20 MG/2 ML VIAL IVP SCH (20:42)
[2022-11-29] MEDS: SENNOSIDES 8.6 MG TABLET PO SCH (20:43)
[2022-11-30] VITALS (24 sets, daily range): BP systolic 94–128
[2022-11-30] MEDS: FLUCONAZOLE 100 mg/ NS 50 ML IV SCH (00:49)
[2022-11-30 05:43] LABS: BASOPHILS % (AUTO) 0.5 % (0.0-2.0); EOSINOPHILS # (AUTO) 0.3 K/uL (0.0-0.4); EOSINOPHILS % (AUTO) 4.4 % (0.0-4.0); HEMATOCRIT 27.1 % (36-54); HEMOGLOBIN 9.1 g/dL (14.0-18.0); LYMPHOCYTES # (AUTO) 0.6 K/uL (1.0-5.5); LYMPHOCYTES % (AUTO) 9.1 % (20.5-51.5); MEAN CORPUSCULAR HEMOGLOBIN 29 pg (27-31); MEAN CORPUSCULAR HGB CONC 34 % (32-36); MEAN CORPUSCULAR VOLUME 85 fL (79.0-98.0); MONOCYTES # (AUTO) 0.6 K/uL (0.0-1.0); MONOCYTES % (AUTO) 8.7 % (1.7-9.3); NEUTROPHILS % (AUTO) 77.3 % (40.0-70.0); PLATELET COUNT (AUTO) 257 K/uL (130-430); RED BLOOD CELL COUNT(AUTO) 3.19 MIL/uL (4.2-6.2); WHITE BLOOD COUNT (AUTO) 6.5 K/uL (4.8-10.8)
[2022-11-30 06:22] LABS: ALANINE AMINOTRANSFERASE 14 U/L (12-78); ALBUMIN 2.2 g/dL (3.4-4.8); ANION GAP 6 (5-15); ASPARTATE AMINOTRANSFERASE 9 U/L (10-37); CALCIUM 8.1 mg/dL (8.4-11.0); CHLORIDE 112 mmol/L (98-107); CREATININE 3.12 mg/dL (0.55-1.30); GLUCOSE 160 mg/dL (70-99); PHOSPHORUS 4.7 mg/dL (2.7-4.5); TOTAL BILIRUBIN 0.3 mg/dL (0.0-1.0); UREA NITROGEN, BLOOD 62 mg/dL (8-21)
[2022-11-30] MEDS: CARVEDILOL 25 MG TABLET (COREG) PO SCH ×2 (08:15→21:13)
[2022-11-30] MEDS: DILTIAZEM HCL 30 MG TABLET PO SCH ×2 (08:16→21:12)
[2022-11-30] MEDS: SACUBITRIL/VALSARTAN 24 MG-26 MG 1 TABLET PO SCH ×2 (08:16→21:13)
[2022-11-30] MEDS: DOCUSATE SODIUM 100 MG CAPSULE PO SCH ×2 (08:16→21:12)
[2022-11-30] MEDS: ATORVASTATIN 20 MG TABLET PO SCH (08:16)
[2022-11-30] MEDS: ISOSORBIDE MONONITRATE 30 MG TAB.ER.24H PO SCH (08:16)
[2022-11-30] MEDS: FUROSEMIDE 20 MG/2 ML VIAL IVP SCH ×2 (08:17→21:13)
--- NOTE | 2022-11-30 15:47 | NUR ---
PHYSICAL THERAPY CO-SIGN The Physical Therapy Progress Notes documented by Quilting Machine Operator have been reviewed. Reviewed/Co-Signed by: Umer Wright Documentation Done by:ARISTIDES PRECIADO Addendum: 11/30/22 at 1547 by Umer Wright PT Amended: Links added.
[2022-11-30 16:47] LABS: APPEARANCE,SPUN,BODY FLUID CLEAR (CLEAR); BF APPEARANCE UNSPUN HAZY (CLEAR); BODY FLUID COLOR YELLOW (LT YELLOW)
[2022-11-30 16:48] LABS: BODY FLUID TOTAL VOLUME 2000 mL; EOSINOPHIL, BODY FLUID 19 %; LYMPHOCYTES, BODY FLUID 32 %; NEUTROPHIL, BODY FLUID 49 %; RBC, BODY FLUID 3694 /uL; WBC, BODY FLUID 188 /uL
[2022-11-30] MEDS: INSULIN REGULAR, HUMAN 100 UNITS/ML, 3 ML VIAL (humuLIN R) SUBCUT PRN (17:13)
--- NOTE | 2022-11-30 20:00 | NUR ---
RN NOTES AWAKE AND ALERT WHEN SEEN, NOT IN ACUTE DISTRESS. O2 ON @ 1L/MIN VIA NC. SCOPE SHOWS A. FIBRILLATION. DENIES ANY FORM OF DISCOMFORT. PT INCONTINENT OF URINE, KEPT CLEAN AND DRY, CONDOM CATH REPLACED. PATIENT REPOSITIONED FOR COMFORT.
[2022-11-30] MEDS: SENNOSIDES 8.6 MG TABLET PO SCH (21:12)
[2022-11-30 21:43] LABS: BODY FLUID GLUCOSE 168 mg/dL; BODY FLUID TOTAL PROTEIN 2.4 g/dL
--- NOTE | 2022-11-30 22:57 | NUR ---
TRANSFER OF CARE PATIENT TRANSFERRED FROM ICU TO [facility] ROOM 107A. REPORT RECEIVED AT BEDSIDE. PATIENT RECEIVED LYING IN BED, AWAKE, DENIES PAIN, STATES HE IS COMFORTABLE. NASAL CANULA ATTACHED PROPERLY, ON 1L OF OXYGEN, TOLERATING WELL, NO SOB. CALL LIGHT WITH PATIENT. BED ALAR ON. BED IS LOCKED AND AT LOWEST POSITION. WILL CONTINUE TO MONITOR.
--- NOTE | 2022-11-30 23:00 | NUR ---
RN NOTES TRANSFERRED TO TELEMETRY IN STABLE CONDITION, PT REPORT GIVEN TO Pablo OLEARY RN
[2022-12-01] MEDS: FLUCONAZOLE 100 mg/ NS 50 ML IV SCH (00:23)
--- NOTE | 2022-12-01 03:00 | NUR ---
ROUNDS PATIENT IN BED, RESTING. NO SIGNS OF DISCOMFORT NOTED AT THIS TIME. ALL NEEDS MET. WILL MONITOR.
--- NOTE | 2022-12-01 06:24 | NUR ---
CLOSING NOTE PATIENT IN BED, NO S/S OF ACUTE DISTRESS. BREATHING EVEN AND UNLABORED. HOB RAISED, NASAL CANULA ATTACHED PROPERLY, ON 1L OF OXYGEN. IV SITE PATENT, NO SIGNS OF INFILTRATION OR INFECTION NOTED. CONDOM CATH ATTACHED, AND DRAINING BY GRAVITY. FLEXI SEAL ATTACHED AND DRAINING BY GRAVITY. SKIN WARM AND DRY TO TOUCH. ALL NEEDS MET THROUGHOUT SHIFT. FALL, SAFETY, PRECAUTIONS MAINTAINED THROUGHOUT SHIFT. WILL CONTINUE TO MONITOR UNTIL PATIENT CARE IS ENDORSED TO ONCOMING DAYSHIFT NURSE.
[2022-12-01 06:26] LABS: BASOPHILS % (AUTO) 0.6 % (0.0-2.0); EOSINOPHILS # (AUTO) 0.2 K/uL (0.0-0.4); EOSINOPHILS % (AUTO) 2.9 % (0.0-4.0); HEMATOCRIT 26.5 % (36-54); HEMOGLOBIN 8.8 g/dL (14.0-18.0); LYMPHOCYTES # (AUTO) 0.6 K/uL (1.0-5.5); LYMPHOCYTES % (AUTO) 9.6 % (20.5-51.5); MEAN CORPUSCULAR HEMOGLOBIN 28 pg (27-31); MEAN CORPUSCULAR HGB CONC 33 % (32-36); MEAN CORPUSCULAR VOLUME 85 fL (79.0-98.0); MONOCYTES # (AUTO) 0.5 K/uL (0.0-1.0); MONOCYTES % (AUTO) 8.6 % (1.7-9.3); NEUTROPHILS # (AUTO) 4.6 K/uL (1.8-7.7); NEUTROPHILS % (AUTO) 78.3 % (40.0-70.0); PLATELET COUNT (AUTO) 251 K/uL (130-430); RED BLOOD CELL COUNT(AUTO) 3.13 MIL/uL (4.2-6.2); RED CELL DISTRIBUTION WIDTH 14.1 % (9.0-15.0); WHITE BLOOD COUNT (AUTO) 5.8 K/uL (4.8-10.8)
[2022-12-01 06:47] LABS: ALANINE AMINOTRANSFERASE 14 U/L (12-78); ANION GAP 5 (5-15); ASPARTATE AMINOTRANSFERASE 11 U/L (10-37); CALCIUM 8.1 mg/dL (8.4-11.0); CHLORIDE 114 mmol/L (98-107); CREATININE 3.09 mg/dL (0.55-1.30); GLUCOSE 154 mg/dL (70-99); PHOSPHORUS 4.7 mg/dL (2.7-4.5); TOTAL BILIRUBIN 0.3 mg/dL (0.0-1.0); UREA NITROGEN, BLOOD 65 mg/dL (8-21)
[2022-12-01 07:48] VITALS: BP_SYST 106
--- NOTE | 2022-12-01 08:00 | NUR ---
Start of shift Pt sitting up in bed eating his breakfast. O2 on at 1L/nc. Pt has Flexi seal for loose bowel movements, which is intact and draining well at this time. Lopez (condom catheter) intact and draining. IV in RAC intact and patent. Tele unit attached and intact. Bed in low position and side rails raised. Bed alarm on. Call light within reach. Pt denies any pain/discomfort or SOB.
[2022-12-01] MEDS: ATORVASTATIN 20 MG TABLET PO SCH (08:26)
[2022-12-01] MEDS: CARVEDILOL 25 MG TABLET (COREG) PO SCH ×2 (08:26→20:51)
[2022-12-01] MEDS: ISOSORBIDE MONONITRATE 30 MG TAB.ER.24H PO SCH (08:27)
[2022-12-01] MEDS: DOCUSATE SODIUM 100 MG CAPSULE PO SCH ×2 (08:27→20:54)
[2022-12-01] MEDS: DILTIAZEM HCL 30 MG TABLET PO SCH ×2 (08:27→20:56)
[2022-12-01] MEDS: ENOXAPARIN SODIUM 30 MG/0.3 ML SYRINGE SUBCUT SCH (08:28)
[2022-12-01] MEDS: FUROSEMIDE 20 MG/2 ML VIAL IVP SCH (08:28)
[2022-12-01] MEDS: SACUBITRIL/VALSARTAN 24 MG-26 MG 1 TABLET PO SCH ×2 (08:34→20:54)
[2022-12-01 11:24] VITALS: BP_SYST 102
[2022-12-01] MEDS: INSULIN REGULAR, HUMAN 100 UNITS/ML, 3 ML VIAL (humuLIN R) SUBCUT PRN ×2 (11:41→16:25)
--- NOTE | 2022-12-01 11:57 | NUR ---
CONDOM CATH Pt's condom cath was displaced when working with PT. called to replace condom cath or leave it off. Addendum: 12/01/22 at 1515 by Regine Mendoza RN waited for call back - no answer back
--- NOTE | 2022-12-01 14:07 | NUR ---
Dr Reis Called to inform MD pt's SBP was 70-80 SBP. waiting for call back. Laid pt flat - HOB at 15' - pt requested for breathing issue.
--- NOTE | 2022-12-01 15:17 | NUR ---
note Pt has urinated in urinal - no condom cath needed at this time. No call from Dr Reis. Left message at 1154am and 1407. Addendum: 12/01/22 at 1523 by Regine Mendoza RN Pt's SBP 85/57, HR 97. RR 20, O2 sats on 1L/nc
--- NOTE | 2022-12-01 15:24 | NUR ---
Note Dr Aure Reis on the floor to assess pt and check labs/tests.
[2022-12-01 15:29] VITALS: BP_SYST 83
[2022-12-01 15:33] VITALS: BP_SYST 82
--- NOTE | 2022-12-01 15:53 | NUR ---
Note Dr Reis gave no new orders regarding SBP of 80-83/45, Continue to observe and monitor. ROGELIO Strickland at this time. Addendum: 12/01/22 at 1557 by Regine Mendoza RN specimen C-Diff sent to lab.
--- NOTE | 2022-12-01 17:00 | NUR ---
NOTE Dr Adrian on the floor to assess pt and check labs/tests.
--- NOTE | 2022-12-01 17:08 | NUR ---
Nutrition F/U Parker reviewed pts current EMR including diet hx, physician notes, nursing notes, pertinent labs/meds/procedures, care trends and care activity. Admitting Diagnosis Acute respiratory failure PMH: per H&P: 87yoM presents emergency room from [facility] for evaluation to rule out pneumothorax. Patient reports that he was discharged from the hospital 2 days ago where they did a thoracentesis and removed fluid from bilateral lungs. Patient reports that he felt better immediately afterwards. Patient reports that today he feels fine. Denies increasing shortness of breath, difficulty breathing, cough congestion fevers chills or chest pain or wheezing. PMHx: acute respiratory failure, pneumonia, chronic congestive heart failure, POLO, NSTEMI, anemia, type 2 diabetes with diabetic nephropathy, COPD, atrial fibrillation, cardiomyopathy, hydronephrosis, hypertension, kidney cyst, pleural effusion, hyperlipidemia 11/28 per MD Shankar: Pt and family wish to try to avoid HD. 11/29: thoracentesis pending, pt will possibly have it on 12/03 per RN Pt remains weak Subjective Information Parker spoke w/ pt at bedside. Pt seemed more A&O than from last visit. Pt enjoyed ONS Nepro and ate about 50% of lunch stepdaughter came by to help feed him. Overall, PO intake has been improving. No N/V. Pt currently has diarrhea and has a FlexiSeal intact (since ICU) to help w/ his loose stool draining well. Primary RN (Regine) said she will D/C Colace d/t pt diarrhea. - Bedscale wt: 160#/73kg Current Diet Order/Nutrition Support Renal Standard, Nepro BID x 3 days Education Provided Not Indicated Pertinent Medications Senna, Lipitor, Cardizem, SSI, Colace, Lovenox, Lasix Pertinent Labs H/H 8.8L/26.7L (trending down), Na 148H (trending up), BUN 65H (trending up), Cre 3.09H (trending down), BG 154H (trending down), POC BG 158H (trending down), Phos 4.7H (trending down). 3.27: HgA1c 6.6H. Height (Feet) 5 feet Height (Inches) 9.00 inches Weight (Pounds) 164 pounds (Stable since 11/28) Patient Weight 74.417 kg Body Mass Index 24.2 kg/m2 %IBW 103 [place]/Adjusted Body Weight 160#/ 73 kg Recent Weight Change No per pt report Weight Status Appropriate Last BM December 01, 2022 Food Allergies None per pt report Usual Diet At Home Regular per pt report Skin Integrity Comment: Ju[place]ino: 18 Wounds: None noted Edema: 1+ pitting on bilat. generalized Current % PO Fair, avg 64% x 4 meals w/ max. assistance Estimated Energy Expenditure (kcals/day) 3198-0902 kcal (25-30 kcal/kg CBW d/t acute respiratory failure) Estimated Protein Required (g/day) 59-104g (0.8-1.4 g/kg CBW d/t ARF and POLO) Estimated Fluid Required (l/day) Refer to MD (POLO and CHF) Problem/Etiology/Signs/Symptoms *MODIFIED* * Complicated GI function R/T pathophysiological causes AEB frequent diarrhea (*New). * Altered nutrition-related lab values R/T renal dysfunction AEB high BUN/Cre (*Ongoing). Expected Outcomes/Goals * Monitor appetite and PO intake provides >85% estimated nutrient needs, nutrition-related labs trending WNL, normal BM regime, continued skin integrity w/ wt maintenance. Dietitian Recommendations *MODIFIED* * Renal Standard, Nepro BID, Banatrol BID (ONS provides 920 kcals and 38 g PRO). * Consider adding CCHO restriction if PO intake improves, and BG remains elevated. Follow Up Mod Risk: F/U in 3-5 days LP, MS, RD
--- NOTE | 2022-12-01 17:09 | NUR ---
Dietitian Recommendations *MODIFIED* * Renal Standard, Nepro BID, Banatrol BID (ONS provides 920 kcals and 38 g PRO). * Consider adding CCHO restriction if PO intake improves, and BG remains elevated. LP, MS, RD Please refer to Nutrition F/U for details.
[2022-12-01] MEDS ORDERED: ALBUMIN HUMAN 25% 200 ML IV ONE (17:30)
--- NOTE | 2022-12-01 18:10 | NUR ---
End of shift Pt sitting up in bed eating his dinner. Pt's son and daughter in law at bedside at this time. Pt has O2 on at 1L/nc. Tele unit attached and intact. Right AC IV intact and patent infusing Albumin 25% at this time. Side rails raised and bed in low position, bed alarm on at this time. No needs noted at this time. Flexi seal intact and draining well. Out put small amount this shift. Call light within reach.
--- NOTE | 2022-12-01 19:25 | NUR ---
CHANGE OF SHIFT; endorsed by dayshift with DX aute repiratory failure. IV Albumin still in progress due to low BP on day shift. daughter in law at bedside. no distress. call light within reach.
[2022-12-01 20:30] VITALS: BP_SYST 103
[2022-12-01] MEDS: SENNOSIDES 8.6 MG TABLET PO SCH (20:44)
--- NOTE | 2022-12-01 21:15 | NUR ---
NOTES: due medicatiopns given, held BP meds due to still low BP @ 100. IV tko infusing on left arm. on O2 @ 1 liter per nasal cannula. with flexiseal in place. pt. uses urinal. cafeteria monitor shows atrial fib. bed alarm on. call light at bedside.
[2022-12-02 00:04] VITALS: BP_SYST 114
--- NOTE | 2022-12-02 01:30 | NUR ---
NOTES: checked pt. quiet and asleep.
[2022-12-02] MEDS: FLUCONAZOLE 100 mg/ NS 50 ML IV SCH (01:57)
--- NOTE | 2022-12-02 04:00 | NUR ---
NOTES: pt. condition observed. pt. sleeping comfortably.
--- NOTE | 2022-12-02 06:30 | NUR ---
CLOSING NOTES; BS checked 155, with sliding scale given. IV site patent. urine leaks everytime he use the urinal., cy care done and kept dry. needs attended. for further care and assist. will endorse to incoming shift.
[2022-12-02] MEDS: INSULIN REGULAR, HUMAN 100 UNITS/ML, 3 ML VIAL (humuLIN R) SUBCUT PRN ×3 (06:36→17:21)
[2022-12-02 07:23] LABS: BASOPHILS % (AUTO) 0.6 % (0.0-2.0); EOSINOPHILS # (AUTO) 0.4 K/uL (0.0-0.4); EOSINOPHILS % (AUTO) 5.4 % (0.0-4.0); HEMATOCRIT 24.8 % (36-54); HEMOGLOBIN 8.2 g/dL (14.0-18.0); LYMPHOCYTES # (AUTO) 0.6 K/uL (1.0-5.5); LYMPHOCYTES % (AUTO) 8.2 % (20.5-51.5); MEAN CORPUSCULAR HEMOGLOBIN 28 pg (27-31); MEAN CORPUSCULAR HGB CONC 33 % (32-36); MEAN CORPUSCULAR VOLUME 85 fL (79.0-98.0); MONOCYTES # (AUTO) 0.6 K/uL (0.0-1.0); MONOCYTES % (AUTO) 8.1 % (1.7-9.3); NEUTROPHILS # (AUTO) 5.3 K/uL (1.8-7.7); NEUTROPHILS % (AUTO) 77.7 % (40.0-70.0); PLATELET COUNT (AUTO) 205 K/uL (130-430); RED BLOOD CELL COUNT(AUTO) 2.93 MIL/uL (4.2-6.2); RED CELL DISTRIBUTION WIDTH 14.2 % (9.0-15.0); WHITE BLOOD COUNT (AUTO) 6.8 K/uL (4.8-10.8)
[2022-12-02 07:25] LABS: ALANINE AMINOTRANSFERASE 14 U/L (12-78); ALBUMIN 2.6 g/dL (3.4-4.8); ANION GAP 8 (5-15); ASPARTATE AMINOTRANSFERASE 10 U/L (10-37); CALCIUM 8.3 mg/dL (8.4-11.0); CHLORIDE 113 mmol/L (98-107); CREATININE 3.11 mg/dL (0.55-1.30); GLUCOSE 161 mg/dL (70-99); PHOSPHORUS 4.4 mg/dL (2.7-4.5); TOTAL BILIRUBIN 0.4 mg/dL (0.0-1.0); UREA NITROGEN, BLOOD 66 mg/dL (8-21)
[2022-12-02 08:45] VITALS: BP_SYST 107
--- NOTE | 2022-12-02 08:45 | NUR ---
INITIAL ROUNDS Received pt AAOx4,no s/s resp distress,no c/o pain or discomfort. Plan of care for the day reviewed with pt-he verbalized his understanding. Pt repositioned in bed with pillow support and heel soff-loaded for skin care and comfort.HOB elevated for ease in breathing and aspiration precautions. Pain management,disease process,skin and safety discussed-teach back done. Side rails up x3,bed alarm on for safety. Call light within reach. Addendum: 12/02/22 at 1637 by Rubi Rm RN Noted Flexiseal in place.
[2022-12-02] MEDS: CARVEDILOL 25 MG TABLET (COREG) PO SCH ×2 (09:00→22:49)
[2022-12-02] MEDS: ISOSORBIDE MONONITRATE 30 MG TAB.ER.24H PO SCH (09:00)
[2022-12-02] MEDS: DILTIAZEM HCL 30 MG TABLET PO SCH ×2 (09:00→20:49)
[2022-12-02] MEDS: ATORVASTATIN 20 MG TABLET PO SCH (09:58)
[2022-12-02] MEDS: DOCUSATE SODIUM 100 MG CAPSULE PO SCH ×2 (09:58→20:47)
[2022-12-02] MEDS: SACUBITRIL/VALSARTAN 24 MG-26 MG 1 TABLET PO SCH ×2 (09:59→20:51)
[2022-12-02] MEDS: ENOXAPARIN SODIUM 30 MG/0.3 ML SYRINGE SUBCUT SCH (10:02)
[2022-12-02 11:46] VITALS: BP_SYST 113
[2022-12-02 18:21] VITALS: BP_SYST 122
--- NOTE | 2022-12-02 18:43 | NUR ---
FLEXISEAL REMOVED Pt had 200 cc loose stool in bag this morning with no further stool today. Pt c/o rectal pain where the "cork" is at. Removed 30ml saline from balloon and Flexiseal removed. Pt cleaned up,fresh chux placed.Pt repositioned with pillow support and heels off-loaded for skin care and comfort.
--- NOTE | 2022-12-02 19:20 | NUR ---
CLOSING NOTE Pt resting quietly in bed with no s/s resp distress, no further c/o pain or discomfort. Needs met. Pt's [id number] at bedside. Endorsed care to traffic reporter nurse. All precautions remain in place. Call light within reach.
--- NOTE | 2022-12-02 19:30 | NUR ---
CHANGE OF SHIFT; pt. resting when checked. denies any discomfort, on fall risk. bed alarm on. IVF tko on rt. arm. call light within reach.
[2022-12-02 20:00] VITALS: BP_SYST 125
[2022-12-02] MEDS: SENNOSIDES 8.6 MG TABLET PO SCH (20:49)
--- NOTE | 2022-12-02 21:43 | NUR ---
NOTES: due hs done, repositioned and turn to sides.pt. needs attended. IV site patent, TKO. voided per urinal. on O2 @ 1 liter per nc. noted to get short of breath on exertion. schedule for left thoracentesis in am.
--- NOTE | 2022-12-02 22:36 | NUR ---
NOTES: Chato Lugo came by, updated on pt. status. reminded for the thoracentesis.
--- NOTE | 2022-12-03 00:01 | NUR ---
NOTES: pt. instructed to be NPO. IV site patent. pt. signed consent for Left Thoacenstesis lynn this am.
[2022-12-03 00:12] VITALS: BP_SYST 108
[2022-12-03] MEDS: FLUCONAZOLE 100 mg/ NS 50 ML IV SCH (01:36)
--- NOTE | 2022-12-03 04:00 | NUR ---
NOTES: condition unchanged. sleeping quietly.
--- NOTE | 2022-12-03 06:28 | NUR ---
CLOSING NOTES: CXR done at bedside. will call MD for thoracentesis order, sterile processing technician Scott said there is no order. BS checked 173, will not give sliding scale since pt. is NPO for now. IV site patent. for further care and assistance. will endorse to incoming shift.
[2022-12-03 06:49] LABS: BASOPHILS % (AUTO) 0.6 % (0.0-2.0); EOSINOPHILS # (AUTO) 0.4 K/uL (0.0-0.4); EOSINOPHILS % (AUTO) 5.4 % (0.0-4.0); HEMATOCRIT 28.8 % (36-54); HEMOGLOBIN 9.5 g/dL (14.0-18.0); LYMPHOCYTES # (AUTO) 0.4 K/uL (1.0-5.5); LYMPHOCYTES % (AUTO) 5.5 % (20.5-51.5); MEAN CORPUSCULAR HEMOGLOBIN 28 pg (27-31); MEAN CORPUSCULAR HGB CONC 33 % (32-36); MEAN CORPUSCULAR VOLUME 85 fL (79.0-98.0); MONOCYTES # (AUTO) 0.6 K/uL (0.0-1.0); MONOCYTES % (AUTO) 7.8 % (1.7-9.3); NEUTROPHILS # (AUTO) 6.3 K/uL (1.8-7.7); NEUTROPHILS % (AUTO) 80.7 % (40.0-70.0); PLATELET COUNT (AUTO) 208 K/uL (130-430); RED BLOOD CELL COUNT(AUTO) 3.38 MIL/uL (4.2-6.2); RED CELL DISTRIBUTION WIDTH 14.3 % (9.0-15.0); WHITE BLOOD COUNT (AUTO) 7.9 K/uL (4.8-10.8)
--- NOTE | 2022-12-03 07:17 | NUR ---
Opening note recieved SBAR from night RN. Paitient in bed, respirations even non labored 1L o2 nasal canula, bed in low and locked position call light within reach. bed alarm on.
[2022-12-03 07:18] LABS: ALANINE AMINOTRANSFERASE 22 U/L (12-78); ALBUMIN 2.5 g/dL (3.4-4.8); ANION GAP 5 (5-15); ASPARTATE AMINOTRANSFERASE 15 U/L (10-37); CALCIUM 8.5 mg/dL (8.4-11.0); CHLORIDE 113 mmol/L (98-107); CREATININE 2.86 mg/dL (0.55-1.30); GLUCOSE 181 mg/dL (70-99); PHOSPHORUS 4.7 mg/dL (2.7-4.5); TOTAL BILIRUBIN 0.4 mg/dL (0.0-1.0); UREA NITROGEN, BLOOD 63 mg/dL (8-21)
[2022-12-03 08:00] VITALS: BP_SYST 154
--- NOTE | 2022-12-03 08:26 | NUR ---
md Dr Seaman bedside examining patient
[2022-12-03] MEDS: DOCUSATE SODIUM 100 MG CAPSULE PO SCH ×2 (08:57→22:30)
[2022-12-03] MEDS: SACUBITRIL/VALSARTAN 24 MG-26 MG 1 TABLET PO SCH ×2 (08:57→22:31)
[2022-12-03] MEDS: DILTIAZEM HCL 30 MG TABLET PO SCH ×2 (08:58→22:31)
[2022-12-03] MEDS: CARVEDILOL 25 MG TABLET (COREG) PO SCH ×2 (08:58→22:30)
[2022-12-03] MEDS: ISOSORBIDE MONONITRATE 30 MG TAB.ER.24H PO SCH ×2 (08:59→09:00)
[2022-12-03] MEDS: ATORVASTATIN 20 MG TABLET PO SCH (08:59)
[2022-12-03] MEDS: ENOXAPARIN SODIUM 30 MG/0.3 ML SYRINGE SUBCUT SCH (09:00)
--- NOTE | 2022-12-03 09:19 | NUR ---
Spoke with Mavis at [facility]. update on discharge status given. Will fax dc referral packet to [phone]. Mavis to set up outpatient thoracentesis at [facility]. Gamble to reach out to Dr Seaman for details.
[2022-12-03 10:08] LABS: INR 1.1 (0.80-1.20); PROTHROMBIN TIME 11.8 SECS (9.5-12.5)
--- NOTE | 2022-12-03 11:11 | NUR ---
PT TO BE DISCHARGE TO [facility] WITH BED # 9B PHONE # [phone]. [facility] [employer] OFFICER TIME AT 1:00PM WITH PHONE # [phone] Addendum: 12/03/22 at 1121 by Shonna VELÁSQUEZ PT WILL BE ON WILL CALL STATUS. PT NEEDS TO UNDERGO THORACENTESIS.
[2022-12-03 11:26] VITALS: BP_SYST 92
[2022-12-03] MEDS: INSULIN REGULAR, HUMAN 100 UNITS/ML, 3 ML VIAL (humuLIN R) SUBCUT PRN ×2 (11:35→17:14)
--- NOTE | 2022-12-03 12:04 | NUR ---
FAMILY SPOKE WITH PATIENTS SON LEAH, INFORMED OF TRANSFER BACK TO [facility] AFTER PATIENT HAS THORACENTESIS AND IS STABLE. SON VERBALIZED CONCERN AND FEELS THAT IT IS TOO SOON FOR PATIENT TO BE TRANSFERRED BACK TO FACILITY. STATED I WOULD CALL DR AUSTIN AND VOICE CONCERNS AND WOULD CALL BACK IF ANYTHING CHANGES
--- NOTE | 2022-12-03 12:07 | NUR ---
PAGED DR AUSTIN LEFT MESSAGE ON MACHINE
--- NOTE | 2022-12-03 12:35 | NUR ---
NURSE NOTE PROVIDED PATIENT WITH BANATROL PLUS PATIENT DRANK 100% 240ML.
--- NOTE | 2022-12-03 13:18 | NUR ---
INCENTIVE SPIROMETER PATIENT HAS BEEN USING INCENTIVE SPIROMETER ALL MORNING. USES IT CORRECTLY AND DOES NOT BECOME SHORT OF BREATH
--- NOTE | 2022-12-03 13:25 | NUR ---
PAGED DR AUSTIN SECOND TIME. SPOKE WITH VAMSHI AT THE OFFICE
--- NOTE | 2022-12-03 13:28 | NUR ---
Wound Evaluation: Wound Consult ordered for Low Juventino Score. Patient evaluated for a low Juventino score of 15. Patient was awake, alert, oriented and received in a Maximo Bed. Remind patient to turn in bed. Skin is intact. Recommend reposition patient every 2 hours with pillow support. Elevate, off-load and float bilateral heels with pillows. Offload pressure areas with pillows for pressure re-distribution. Perform skin care and monitor skin integrity Q shift. Use moisture barrier cream on moisture susceptible areas QID and PRN for soiling.
[2022-12-03 14:00] LABS: SOURCE/TYPE ,BODY FLUID THORACENTESIS
--- NOTE | 2022-12-03 14:16 | NUR ---
CASE MANAGEMENT SPOKE WITH SYBIL FROM CASE MANAGEMENT. INFORMED HER THAT JOSE IN [place] STATES THORACENTESIS MAY NOT HAPPEN TODAY, RADIOLOGIST IS RUNNING BEHIND DUE TO CASES AT OTHER HOSPITALS.
--- NOTE | 2022-12-03 14:19 | NUR ---
NURSE NOTE INFORMED DR AUSTIN THAT THORACENTESIS MAY NOT HAPPEN TODAY DUE TO RADIOLOGIST BEING TIED UP AT OTHER HOSPITALS
--- NOTE | 2022-12-03 14:21 | NUR ---
CM informed that pt thoracentesis will be done tomorrow. Wallace at [facility] notified. Transportation is on will call
--- NOTE | 2022-12-03 14:21 | NUR ---
NURSE NOTE INFORMED PATIENT THAT THORACENTESIS MAY NOT TAKE PLACE TODAY DUE TO MD BEING HELD UP AT OTHER HOSPITALS, ANSWERED ALL QUESTIONS, PATIENT VERBALIZED UNDERSTANDING
--- NOTE | 2022-12-03 14:27 | NUR ---
FAMILY SPOKE WITH PATIENTS SON LEAH. INFORMED THAT PATIENT MAY NOT BE TRANSFERRED TODAY DUE TO THORACENTESIS BEING DELAYED.
--- NOTE | 2022-12-03 15:02 | NUR ---
PHYSICAL THERAPY CO-SIGN The Physical Therapy Progress Notes documented by Clinical Trials Specialist have been reviewed. Reviewed/Co-Signed by: Umer Wright Documentation Done by:ARISTIDES PRECIADO Addendum: 12/03/22 at 1502 by Umer Wright PT Amended: Links added.
[2022-12-03 15:11] VITALS: BP_SYST 99
--- NOTE | 2022-12-03 19:10 | NUR ---
CLOSING NOTE PROVIDED SBAR TO NIGHT RN. PATIENT IN BED, RESPIRATIONS EVEN, NON LABORED, BED IN LOW AND LOCKED POSITION CALL LIGHT WITHIN REACH, BED ALARM ON. ENDORSED TO NIGHT RN PATIENT IS HAVING THORACENTESIS TOMORROW CONSENT IS SIGNED. ENDORSED CARE TO NIGHT RN.
[2022-12-03 20:30] VITALS: BP_SYST 114
--- NOTE | 2022-12-03 21:35 | NUR ---
Patient alert using the urinal as needed is aware of thoracentesis in AM , bed alarm is on procedures explained / .
[2022-12-03] MEDS: SENNOSIDES 8.6 MG TABLET PO SCH (22:30)
--- NOTE | 2022-12-04 00:29 | NUR ---
Hourly Rounding patient Resting is verbally Responsive HOB elevated chest movement shallow also symmetrical call yu given to patient / .
[2022-12-04 00:46] VITALS: BP_SYST 99
--- NOTE | 2022-12-04 04:07 | NUR ---
Hourly Rounding patient Resting assist for position change bed alarm on activity tolerated .
[2022-12-04] MEDS: INSULIN REGULAR, HUMAN 100 UNITS/ML, 3 ML VIAL (humuLIN R) SUBCUT PRN ×3 (06:32→16:40)
--- NOTE | 2022-12-04 07:08 | NUR ---
opening note Received SBAR from night RN. Patient in bed, respirations even, non labored, 1 L o2 nasal canula. Bed in low and locked position, bed alarm tongue and groove machine feeder light within reach,
[2022-12-04] MEDS: SACUBITRIL/VALSARTAN 24 MG-26 MG 1 TABLET PO SCH (08:56)
[2022-12-04] MEDS: DILTIAZEM HCL 30 MG TABLET PO SCH (08:57)
[2022-12-04] MEDS: DOCUSATE SODIUM 100 MG CAPSULE PO SCH (08:57)
[2022-12-04] MEDS: ISOSORBIDE MONONITRATE 30 MG TAB.ER.24H PO SCH ×2 (08:58→09:00)
[2022-12-04] MEDS: CARVEDILOL 25 MG TABLET (COREG) PO SCH (08:58)
[2022-12-04] MEDS: ATORVASTATIN 20 MG TABLET PO SCH (08:59)
[2022-12-04] MEDS: ENOXAPARIN SODIUM 30 MG/0.3 ML SYRINGE SUBCUT SCH (09:00)
[2022-12-04 09:37] LABS: BASOPHILS % (AUTO) 0.7 % (0.0-2.0); EOSINOPHILS # (AUTO) 0.3 K/uL (0.0-0.4); HEMATOCRIT 28.5 % (36-54); HEMOGLOBIN 9.3 g/dL (14.0-18.0); LYMPHOCYTES # (AUTO) 0.3 K/uL (1.0-5.5); LYMPHOCYTES % (AUTO) 4.3 % (20.5-51.5); MEAN CORPUSCULAR HEMOGLOBIN 28 pg (27-31); MEAN CORPUSCULAR HGB CONC 33 % (32-36); MEAN CORPUSCULAR VOLUME 85 fL (79.0-98.0); MONOCYTES # (AUTO) 0.5 K/uL (0.0-1.0); MONOCYTES % (AUTO) 7.6 % (1.7-9.3); NEUTROPHILS # (AUTO) 5.9 K/uL (1.8-7.7); NEUTROPHILS % (AUTO) 83.4 % (40.0-70.0); PLATELET COUNT (AUTO) 199 K/uL (130-430); RED BLOOD CELL COUNT(AUTO) 3.34 MIL/uL (4.2-6.2); RED CELL DISTRIBUTION WIDTH 14.5 % (9.0-15.0)
[2022-12-04 09:54] LABS: ALANINE AMINOTRANSFERASE 22 U/L (12-78); ALBUMIN 2.2 g/dL (3.4-4.8); ANION GAP 7 (5-15); ASPARTATE AMINOTRANSFERASE 14 U/L (10-37); CALCIUM 8.3 mg/dL (8.4-11.0); CHLORIDE 110 mmol/L (98-107); CREATININE 2.81 mg/dL (0.55-1.30); GLUCOSE 269 mg/dL (70-99); PHOSPHORUS 4.7 mg/dL (2.7-4.5); TOTAL BILIRUBIN 0.3 mg/dL (0.0-1.0); UREA NITROGEN, BLOOD 64 mg/dL (8-21)
[2022-12-04 11:28] VITALS: BP_SYST 133
--- NOTE | 2022-12-04 13:57 | NUR ---
thoracentesis Dr. Martinez bedside for procedure. VS q 3 minutes for exam HR 85 BP 142/88, 96%02 on 2L nasal canula. Time out done.
--- NOTE | 2022-12-04 14:15 | NUR ---
Procedure complete procedure complete, patient denies any pain or discomfort
--- NOTE | 2022-12-04 14:24 | NUR ---
RN MEDICALLY CLEARED PATIENT FOR PT TREATMENT HOWEVER PATIENT REFUSED. PATIENT STATES THERE IS TOO MUCH GOING ON AND HE IS STRESSED. WILL TRY AGAIN TOMORROW.
--- NOTE | 2022-12-04 14:49 | NUR ---
PT TO BE DISCHARGE TO [facility] WITH BED#3A PHONE#[phone] [facility] WILL PROCESS DEVELOPMENT ENGINEER AT 5:00PM WITH PHONE#[phone]
[2022-12-04 15:22] VITALS: BP_SYST 90
--- NOTE | 2022-12-04 15:59 | NUR ---
report Provided report to Shania Lino Addendum: 12/04/22 at 1608 by Luis Miguel Lama RN accepting Murugan
[2022-12-04] MEDS ORDERED: EPOETIN ALFA 10,000 UNITS/ML VIAL SUBCUT SCH (17:00)
--- NOTE | 2022-12-04 17:27 | NUR ---
PT TRANSFERRED Report given to Shania at [facility]. Transfer packet with Transfer Orders and Medication Reconciliation form given to EMT with report. Exitcare provided. [facility] ID band removed, replaced with ID band with pt's name and . IV catheter removed, intact and dressing applied, no active bleeding. All belongings sent with patient. Patient left floor via gurney escorted by EMT in no distress.
== END 2022-12-04 17:50 | DRG 186 ==
LOC: SED 19:15 → STU 21:58 → SIC 11-27 01:13 → STU 11-30 22:50
PROC: 0W993ZZ Drainage of Right Pleural Cavity, Percutaneous Approach (ICD-10-PCS; principal; 2022-11-30)
PROC: 0W9B3ZZ Drainage of Left Pleural Cavity, Percutaneous Approach (ICD-10-PCS; 2022-12-04)
DX: J94.8 Other specified pleural conditions (principal); E43 Unspecified severe protein-calorie malnutrition; J96.20 Acute and chronic respiratory failure, unspecified whether with hypoxia or hypercapnia; I50.43 Acute on chronic combined systolic (congestive) and diastolic (congestive) heart failure; N17.0 Acute kidney failure with tubular necrosis; I13.0 Hypertensive heart and chronic kidney disease with heart failure and stage 1 through stage 4 chronic kidney disease, or unspecified chronic kidney disease; N39.0 Urinary tract infection, site not specified; N18.4 Chronic kidney disease, stage 4 (severe); I31.39 Other pericardial effusion (noninflammatory); E87.5 Hyperkalemia; J44.9 Chronic obstructive pulmonary disease, unspecified; E78.5 Hyperlipidemia, unspecified; I25.5 Ischemic cardiomyopathy; E11.22 Type 2 diabetes mellitus with diabetic chronic kidney disease; D63.8 Anemia in other chronic diseases classified elsewhere; E83.39 Other disorders of phosphorus metabolism; E83.41 Hypermagnesemia; I25.10 Atherosclerotic heart disease of native coronary artery without angina pectoris; I48.0 Paroxysmal atrial fibrillation; Z20.822 Contact with and (suspected) exposure to COVID-19; Z88.0 Allergy status to penicillin; I25.2 Old myocardial infarction; Z79.4 Long term (current) use of insulin; Z79.899 Other long term (current) drug therapy; Z87.891 Personal history of nicotine dependence; Z68.24 Body mass index [BMI] 24.0-24.9, adult
CPT/HCPCS: 32555; 36415; 36600; 71045; 71250-TC; 76376; 76604; 80053; 80307; 81000; 82803-TC; 82947; 82962; 83037; 83605; 83735; 83880; 84100; 84157; 84439; 84443; 84484; 85025; 85610-TC; 85730-TC; 87040; 87070-TC; 87081; 87086; 87101; 87116; 87205-TC; 87230-TC; 88108; 88305; 89051-TC; 89060-TC; 93005; 96365; 97110-GP; 97112-GP; 97116-GP; 97530-GP; 99285; G0378; J0885; J1450; J1650; J1815; J1940; J1956; J2270; J3490; J7131

== ENCOUNTER 2023-04-02 10:08 | Inpatient (IN) | payer OTHER, MEDICARE ==
[~2023-04-02] VITALS: Ht 175.3 cm; Wt 73.5 kg
[2023-04-02 10:24] VITALS: BP_SYST 127; PULSE 110; RESP 18; TEMP 98.3; O2SAT 100
[2023-04-02 11:47] LABS: BASOPHILS # (AUTO) 0.1 K/uL (0.0-0.2); BASOPHILS % (AUTO) 1.1 % (0.0-2.0); EOSINOPHILS # (AUTO) 0.1 K/uL (0.0-0.4); EOSINOPHILS % (AUTO) 2.3 % (0.0-4.0); HEMATOCRIT 25.1 % (36-54); HEMOGLOBIN 8.3 g/dL (14.0-18.0); LYMPHOCYTES # (AUTO) 0.4 K/uL (1.0-5.5); LYMPHOCYTES % (AUTO) 7.6 % (20.5-51.5); MEAN CORPUSCULAR HEMOGLOBIN 28 pg (27-31); MEAN CORPUSCULAR HGB CONC 33 % (32-36); MEAN CORPUSCULAR VOLUME 86 fL (79.0-98.0); MONOCYTES # (AUTO) 0.4 K/uL (0.0-1.0); MONOCYTES % (AUTO) 6.7 % (1.7-9.3); NEUTROPHILS # (AUTO) 4.6 K/uL (1.8-7.7); NEUTROPHILS % (AUTO) 82.3 % (40.0-70.0); PLATELET COUNT (AUTO) 236 K/uL (130-430); RED BLOOD CELL COUNT(AUTO) 2.91 MIL/uL (4.2-6.2); RED CELL DISTRIBUTION WIDTH 17.5 % (9.0-15.0); WHITE BLOOD COUNT (AUTO) 5.6 K/uL (4.8-10.8)
[2023-04-02 12:09] LABS: ANION GAP 6 (5-15); CALCIUM 7.9 mg/dL (8.4-11.0); CARBON DIOXIDE 31 mmol/L (23-29); CHLORIDE 105 mmol/L (98-107); CREATININE 1.97 mg/dL (0.55-1.30); GLUCOSE 164 mg/dL (74-106); POTASSIUM 3.4 mmol/L (3.5-5.1); SODIUM SERUM 142 mmol/L (136-145); UREA NITROGEN, BLOOD 44 mg/dL (8-21)
[2023-04-02 12:16] LABS: ALANINE AMINOTRANSFERASE 14 U/L (12-78); ALBUMIN 2.3 g/dL (3.4-4.8); ASPARTATE AMINOTRANSFERASE 18 U/L (10-37); TOTAL BILIRUBIN 0.4 mg/dL (0.0-1.0)
[2023-04-02 12:28] LABS: INR 1.2 (0.80-1.20); PROTHROMBIN TIME 12.8 SECS (9.5-12.5)
[2023-04-02] MEDS ORDERED: ONDANSETRON HCL 4 MG/2 ML VIAL IVP PRN (13:45)
[2023-04-02] MEDS ORDERED: ACETAMINOPHEN 325 MG TABLET PO PRN ×2 (13:45→14:00)
[2023-04-02] MEDS ORDERED: DEXTROSE 50% JECT 50 ML DISP.SYRIN IVP PRN (13:45)
[2023-04-02] MEDS ORDERED: MORPHINE 2 MG/ML INJ. SYRINGE IVP PRN ×2 (13:45)
[2023-04-02] MEDS ORDERED: MUPIROCIN 2% TOPICAL OINTMENT 22 GM NS PRN (13:45)
[2023-04-02] MEDS ORDERED: MAGNESIUM SULFATE 50 ML IV PRN (13:45)
[2023-04-02] MEDS ORDERED: LORazepam 2 MG/ML VIAL IVP PRN (13:45)
[2023-04-02] MEDS ORDERED: ZOLPIDEM TARTRATE 5 MG TABLET PO PRN (13:45)
[2023-04-02] MEDS ORDERED: DOCUSATE SODIUM 100 MG CAPSULE PO PRN (13:45)
[2023-04-02] MEDS ORDERED: IPRATROPIUM/ALBUTEROL SULFATE 3 ML AMPUL.NEB (DUONEB) INH PRN (13:45)
[2023-04-02] MEDS ORDERED: PANTOPRAZOLE SODIUM 40 MG/VIAL (PROTONIX) IVP ONE (14:45)
[2023-04-02] MEDS: D5NS 1,000 ML IV SCH (16:03)
[2023-04-02] MEDS: INSULIN LISPRO SLIDING SCALE 100 UNITS/ML, 3 ML VIAL (humaLOG) SUBCUT PRN (16:58)
[2023-04-02 17:28] VITALS: BP_SYST 147; PULSE 128; RESP 24; O2SAT 94
[2023-04-02 17:54] VITALS: BP_SYST 127; PULSE 110; O2SAT 96
[2023-04-02 18:00] VITALS: BP_SYST 133; PULSE 127; RESP 22; TEMP 97
[2023-04-02 19:43] VITALS: O2SAT 95
[2023-04-02] MEDS: SACUBITRIL/VALSARTAN 24 MG-26 MG 1 TABLET PO SCH (20:45)
[2023-04-02] MEDS: SENNOSIDES 8.6 MG TABLET PO SCH (20:46)
[2023-04-02] MEDS ORDERED: CARVEDILOL 25 MG TABLET (COREG) PO SCH (21:00)
[2023-04-02] MEDS ORDERED: DILTIAZEM HCL 30 MG TABLET PO SCH (21:00)
[2023-04-02] MEDS: POTASSIUM CHLORIDE 20 MEQ TAB.PRT.SR PO PRN (22:29)
[2023-04-03 01:13] VITALS: BP_SYST 123; PULSE 105; RESP 16; TEMP 98; O2SAT 99
[2023-04-03 04:24] LABS: BASOPHILS % (AUTO) 0.5 % (0.0-2.0); EOSINOPHILS % (AUTO) 0.3 % (0.0-4.0); HEMATOCRIT 27.2 % (36-54); HEMOGLOBIN 8.7 g/dL (14.0-18.0); LYMPHOCYTES # (AUTO) 0.3 K/uL (1.0-5.5); LYMPHOCYTES % (AUTO) 5.9 % (20.5-51.5); MEAN CORPUSCULAR HEMOGLOBIN 28 pg (27-31); MEAN CORPUSCULAR HGB CONC 32 % (32-36); MEAN CORPUSCULAR VOLUME 86 fL (79.0-98.0); MONOCYTES # (AUTO) 0.2 K/uL (0.0-1.0); MONOCYTES % (AUTO) 3.8 % (1.7-9.3); NEUTROPHILS % (AUTO) 89.5 % (40.0-70.0); PLATELET COUNT (AUTO) 236 K/uL (130-430); RED BLOOD CELL COUNT(AUTO) 3.15 MIL/uL (4.2-6.2); RED CELL DISTRIBUTION WIDTH 17.5 % (9.0-15.0); WHITE BLOOD COUNT (AUTO) 5.6 K/uL (4.8-10.8)
[2023-04-03 04:36] LABS: ANION GAP 7 (5-15); CALCIUM 8.3 mg/dL (8.4-11.0); CARBON DIOXIDE 31 mmol/L (23-29); CHLORIDE 106 mmol/L (98-107); GLUCOSE 167 mg/dL (74-106); SODIUM SERUM 144 mmol/L (136-145); UREA NITROGEN, BLOOD 44 mg/dL (8-21)
[2023-04-03] MEDS: INSULIN LISPRO SLIDING SCALE 100 UNITS/ML, 3 ML VIAL (humaLOG) SUBCUT PRN (06:05)
[2023-04-03 08:56] VITALS: O2SAT 99
[2023-04-03 09:11] VITALS: BP_SYST 119; BP_SYST 134; PULSE 65; PULSE 66; RESP 16; RESP 24; TEMP 96.3; TEMP 97.1; O2SAT 99
[2023-04-03] MEDS: ATORVASTATIN 20 MG TABLET PO SCH (09:41)
[2023-04-03] MEDS: PANTOPRAZOLE SODIUM 40 MG/VIAL (PROTONIX) IVP SCH (09:41)
[2023-04-03] MEDS: ISOSORBIDE MONONITRATE 30 MG TAB.ER.24H PO SCH (09:41)
[2023-04-03] MEDS: SACUBITRIL/VALSARTAN 24 MG-26 MG 1 TABLET PO SCH ×2 (09:42→22:21)
[2023-04-03] MEDS ORDERED: CARVEDILOL 25 MG TABLET (COREG) PO ONE (10:15)
[2023-04-03] MEDS ORDERED: DIATR MEGLU/DIATRIZ SOD 30 ML SOLUTION PO ONE (10:33)
[2023-04-03 11:46] VITALS: BP_SYST 144; PULSE 105; RESP 16; TEMP 96.9; O2SAT 100
[2023-04-03] MEDS: D5NS 1,000 ML IV SCH (14:45)
[2023-04-03 16:57] VITALS: BP_SYST 113; PULSE 96; RESP 16; TEMP 97; O2SAT 100
[2023-04-03 20:00] VITALS: BP_SYST 138; PULSE 112; RESP 18; TEMP 97.3; O2SAT 96
[2023-04-03] MEDS: SENNOSIDES 8.6 MG TABLET PO SCH (22:20)
[2023-04-03] MEDS: CARVEDILOL 25 MG TABLET (COREG) PO SCH (22:21)
[2023-04-04] VITALS (8 sets, daily range): BP systolic 100–123; PULSE 100–115; RESP 16–18; TEMP 97.2–98; O2SAT 95–98
[2023-04-04 05:26] LABS: BASOPHILS % (AUTO) 0.8 % (0.0-2.0); EOSINOPHILS # (AUTO) 0.1 K/uL (0.0-0.4); EOSINOPHILS % (AUTO) 1.2 % (0.0-4.0); HEMATOCRIT 28.1 % (36-54); HEMOGLOBIN 8.9 g/dL (14.0-18.0); LYMPHOCYTES # (AUTO) 0.5 K/uL (1.0-5.5); LYMPHOCYTES % (AUTO) 8.4 % (20.5-51.5); MEAN CORPUSCULAR HEMOGLOBIN 27 pg (27-31); MEAN CORPUSCULAR HGB CONC 32 % (32-36); MEAN CORPUSCULAR VOLUME 87 fL (79.0-98.0); MONOCYTES # (AUTO) 0.4 K/uL (0.0-1.0); MONOCYTES % (AUTO) 7.1 % (1.7-9.3); NEUTROPHILS # (AUTO) 4.7 K/uL (1.8-7.7); NEUTROPHILS % (AUTO) 82.5 % (40.0-70.0); PLATELET COUNT (AUTO) 274 K/uL (130-430); RED BLOOD CELL COUNT(AUTO) 3.25 MIL/uL (4.2-6.2); RED CELL DISTRIBUTION WIDTH 17.3 % (9.0-15.0); WHITE BLOOD COUNT (AUTO) 5.7 K/uL (4.8-10.8)
[2023-04-04 06:18] LABS: ALANINE AMINOTRANSFERASE 8 U/L (12-78); ALBUMIN 2.1 g/dL (3.4-4.8); ANION GAP 5 (5-15); ASPARTATE AMINOTRANSFERASE 14 U/L (10-37); CALCIUM 8.2 mg/dL (8.4-11.0); CARBON DIOXIDE 30 mmol/L (23-29); CHLORIDE 108 mmol/L (98-107); CREATININE 1.95 mg/dL (0.55-1.30); GLUCOSE 138 mg/dL (74-106); SODIUM SERUM 143 mmol/L (136-145); TOTAL BILIRUBIN 0.5 mg/dL (0.0-1.0); TOTAL PROTEIN, SERUM 5.4 g/dL (6.4-8.3); UREA NITROGEN, BLOOD 42 mg/dL (8-21)
[2023-04-04 06:49] LABS: TOTAL IRON BIND. CAPACITY 218 ug/dL (250-450)
[2023-04-04] MEDS: CARVEDILOL 25 MG TABLET (COREG) PO SCH ×2 (08:38→20:53)
[2023-04-04] MEDS: SACUBITRIL/VALSARTAN 24 MG-26 MG 1 TABLET PO SCH ×2 (08:39→20:55)
[2023-04-04] MEDS: ATORVASTATIN 20 MG TABLET PO SCH (08:39)
[2023-04-04] MEDS: ISOSORBIDE MONONITRATE 30 MG TAB.ER.24H PO SCH (08:39)
[2023-04-04] MEDS: D5NS 1,000 ML IV SCH (14:25)
[2023-04-04] MEDS: PANTOPRAZOLE SODIUM 40 MG/VIAL (PROTONIX) IVP SCH (14:39)
[2023-04-04] MEDS ORDERED: BISACODYL 5 MG TABLET.DR (DULCOLAX) PO ONE (17:00)
[2023-04-04] MEDS: INSULIN LISPRO SLIDING SCALE 100 UNITS/ML, 3 ML VIAL (humaLOG) SUBCUT PRN ×2 (17:32→20:58)
[2023-04-04] MEDS ORDERED: GOLYTELY / COLYTE SOLUTION 4 LITERS PO ONE (18:00)
[2023-04-04] MEDS: SENNOSIDES 8.6 MG TABLET PO SCH (20:53)
[2023-04-05] VITALS (7 sets, daily range): BP systolic 96–134; PULSE 84–115; RESP 14–18; TEMP 96.6–97.5; O2SAT 93–100
[2023-04-05 05:40] LABS: BASOPHILS % (AUTO) 0.6 % (0.0-2.0); EOSINOPHILS # (AUTO) 0.1 K/uL (0.0-0.4); EOSINOPHILS % (AUTO) 2.1 % (0.0-4.0); HEMATOCRIT 26.7 % (36-54); HEMOGLOBIN 8.6 g/dL (14.0-18.0); LYMPHOCYTES # (AUTO) 0.4 K/uL (1.0-5.5); LYMPHOCYTES % (AUTO) 5.8 % (20.5-51.5); MEAN CORPUSCULAR HEMOGLOBIN 28 pg (27-31); MEAN CORPUSCULAR HGB CONC 32 % (32-36); MEAN CORPUSCULAR VOLUME 87 fL (79.0-98.0); MONOCYTES # (AUTO) 0.6 K/uL (0.0-1.0); MONOCYTES % (AUTO) 9.9 % (1.7-9.3); NEUTROPHILS # (AUTO) 5.3 K/uL (1.8-7.7); NEUTROPHILS % (AUTO) 81.6 % (40.0-70.0); PLATELET COUNT (AUTO) 234 K/uL (130-430); RED BLOOD CELL COUNT(AUTO) 3.07 MIL/uL (4.2-6.2); RED CELL DISTRIBUTION WIDTH 17.4 % (9.0-15.0); WHITE BLOOD COUNT (AUTO) 6.4 K/uL (4.8-10.8)
[2023-04-05 05:55] LABS: ANION GAP 6 (5-15); CALCIUM 8.1 mg/dL (8.4-11.0); CARBON DIOXIDE 30 mmol/L (23-29); CHLORIDE 107 mmol/L (98-107); GLUCOSE 61 mg/dL (74-106); INR 1.2 (0.80-1.20); POTASSIUM 3.3 mmol/L (3.5-5.1); PROTHROMBIN TIME 12.1 SECS (9.5-12.5); SODIUM SERUM 143 mmol/L (136-145); UREA NITROGEN, BLOOD 39 mg/dL (8-21)
[2023-04-05] MEDS ORDERED: fentaNYL CITRATE/PF 100 MCG/2 ML AMP ONE (08:14)
[2023-04-05] MEDS ORDERED: SIMETHICONE 40 MG/0.6 ML ML ONE (08:14)
[2023-04-05] MEDS ORDERED: MIDAZOLAM HCL 5 MG/5 ML VIAL ONE (08:15)
[2023-04-05] MEDS: PANTOPRAZOLE SODIUM 40 MG/VIAL (PROTONIX) IVP SCH (08:36)
[2023-04-05] MEDS: ATORVASTATIN 20 MG TABLET PO SCH (10:12)
[2023-04-05] MEDS: CARVEDILOL 25 MG TABLET (COREG) PO SCH (10:12)
[2023-04-05] MEDS: ISOSORBIDE MONONITRATE 30 MG TAB.ER.24H PO SCH (10:12)
[2023-04-05] MEDS: POTASSIUM CHLORIDE 20 MEQ TAB.PRT.SR PO PRN (10:13)
[2023-04-05] MEDS: SACUBITRIL/VALSARTAN 24 MG-26 MG 1 TABLET PO SCH (10:14)
[2023-04-05] MEDS: D5NS 1,000 ML IV SCH (14:09)
[2023-04-05] MEDS: INSULIN LISPRO SLIDING SCALE 100 UNITS/ML, 3 ML VIAL (humaLOG) SUBCUT PRN (17:06)
[2023-04-05] MEDS ORDERED: FERROUS SULFATE 325 MG TABLET.DR PO SCH (21:00)
== END 2023-04-05 17:56 | disposition home or self-care (01) | DRG 393 ==
LOC: SED 10:08 → STU 13:02 → SMU 16:00 → STU 17:34
PROVIDERS: ADMIT General Practice; ATTEND General Practice
PROC: 0W9B3ZZ Drainage of Left Pleural Cavity, Percutaneous Approach (ICD-10-PCS; 2023-04-05)
PROC: 3E0H8KZ Introduction of Other Diagnostic Substance into Lower GI, Via Natural or Artificial Opening Endoscopic (ICD-10-PCS; 2023-04-05)
PROC: 0DBK8ZX Excision of Ascending Colon, Via Natural or Artificial Opening Endoscopic, Diagnostic (ICD-10-PCS; principal; 2023-04-05 08:00)
PROC: 0DBM8ZX Excision of Descending Colon, Via Natural or Artificial Opening Endoscopic, Diagnostic (ICD-10-PCS; 2023-04-05 08:00)
DX: D12.8 Benign neoplasm of rectum (principal); I50.43 Acute on chronic combined systolic (congestive) and diastolic (congestive) heart failure; I13.0 Hypertensive heart and chronic kidney disease with heart failure and stage 1 through stage 4 chronic kidney disease, or unspecified chronic kidney disease; I48.20 Chronic atrial fibrillation, unspecified; N17.9 Acute kidney failure, unspecified; N18.4 Chronic kidney disease, stage 4 (severe); J90 Pleural effusion, not elsewhere classified; D63.8 Anemia in other chronic diseases classified elsewhere; E11.22 Type 2 diabetes mellitus with diabetic chronic kidney disease; E78.5 Hyperlipidemia, unspecified; I25.10 Atherosclerotic heart disease of native coronary artery without angina pectoris; I25.2 Old myocardial infarction; K80.20 Calculus of gallbladder without cholecystitis without obstruction; I25.5 Ischemic cardiomyopathy; J44.9 Chronic obstructive pulmonary disease, unspecified; K63.5 Polyp of colon; K64.8 Other hemorrhoids; Z79.01 Long term (current) use of anticoagulants; Z79.84 Long term (current) use of oral hypoglycemic drugs; Z79.899 Other long term (current) drug therapy; Z87.891 Personal history of nicotine dependence; Z88.0 Allergy status to penicillin
CPT/HCPCS: 32555; 36415; 45380; 45385; 71045; 76376; 78226; 80048; 80053; 82728; 82962; 83037; 83540; 83550; 83735; 83880; 84484; 85025; 85610-TC; 85730-TC; 86886; 86900; 86901; 88305; 93005; 94760; 99291; A9537; C9113; G0378; J2250; J3010; J7042; Q9964